=== PATIENT | female | born 1975 | race Hispanic/Latino ===

== ENCOUNTER 2017-07-22 15:41 | Outpatient (CLI) | payer OTHER | END 2017-07-22 15:42 | disposition home or self-care (01) | LOC: BICMAMMO 15:41 | PROVIDERS: ATTEND Family Medicine | DX: Z12.31 Encounter for screening mammogram for malignant neoplasm of breast (principal); R92.1 Mammographic calcification found on diagnostic imaging of breast; Z80.3 Family history of malignant neoplasm of breast | CPT/HCPCS: 77063; 77067 ==

== ENCOUNTER 2018-07-26 15:56 | Outpatient (CLI) | payer OTHER ==
--- NOTE | 2018-07-26 16:47 | MMO ---
Bilateral MAMMO Bilat Screen [facility]. CLINICAL HISTORY: Patient is 43 years old and is seen for screening. The patient has the following family history of breast cancer: paternal aunt. The patient has no personal history of cancer. VIEWS: The views performed were: bilateral craniocaudal with tomosynthesis; bilateral mediolateral oblique with tomosynthesis; and bilateral exaggerated craniocaudal with tomosynthesis. FILMS COMPARED: The present examination has been compared to prior imaging studies performed at [facility] on 06/17/2015, 06/21/2016 and 07/22/2017. MAMMOGRAM FINDINGS: There are scattered fibroglandular densities. There are no suspicious masses, suspicious calcifications, or new areas of architectural distortion. IMPRESSION: THERE IS NO MAMMOGRAPHIC EVIDENCE OF MALIGNANCY. A ROUTINE FOLLOW-UP MAMMOGRAM IN 1 YEAR IS RECOMMENDED. THE RESULTS OF THIS EXAM WERE SENT TO THE PATIENT. ACR BI-RADS Category 1 - Negative MAMMOGRAPHY NOTE: 1. A negative mammogram report should not delay a biopsy if a dominant of clinically suspicious mass is present. 2. Approximately 10% to 15% of breast cancers are not detected by mammography. 3. Adenosis and dense breasts may obscure an underlying neoplasm.
== END 2018-07-26 15:57 | disposition home or self-care (01) ==
LOC: BICMAMMO 15:56
PROVIDERS: ATTEND Family Medicine
DX: Z12.31 Encounter for screening mammogram for malignant neoplasm of breast (principal); Z80.3 Family history of malignant neoplasm of breast
CPT/HCPCS: 77063; 77067

== ENCOUNTER 2018-10-06 09:22 | Outpatient (CLI) | payer BC, SELFPAY ==
--- NOTE | 2018-10-06 10:20 | ULT ---
Exam: Hepatic ultrasound with vascular duplex including color and spectral Doppler imaging: HISTORY: Microcytic anemia, epigastric pain The liver is minimally enlarged with very minimally coarse echogenicity, measuring 19.8 cm in length. No focal liver mass. Common bile duct 0.5 cm. Gallbladder is distended and dilated filled with sludge and stones with borderline thickened gallblad ulysses wall. Hepatic venous and portal venous flow is antegrade. IMPRESSION: Antegrade hepatic and portal venous flow. Mildly dilated and distended gallbladder with very extensiv e sludge and stones with minimal gallbladder wall thickening without ductal dilatation. Mild hepatomegaly.
== END 2018-10-06 09:23 | disposition home or self-care (01) ==
LOC: BICULT 09:22
PROVIDERS: ATTEND Internal Medicine Gastroenterology
DX: K21.9 Gastro-esophageal reflux disease without esophagitis (principal); D50.9 Iron deficiency anemia, unspecified; K59.00 Constipation, unspecified; R10.13 Epigastric pain; K82.8 Other specified diseases of gallbladder; R16.0 Hepatomegaly, not elsewhere classified; K80.20 Calculus of gallbladder without cholecystitis without obstruction
CPT/HCPCS: 76705

== ENCOUNTER → 2018-12-12 | Day surgery (SDC) | payer BC ==
[2018-12-11 17:02] VITALS: BMI 44.0
[~2018-12-12] MED LIST: Bupivacaine/Epinephrine 0.25% 30 ML VIAL ONE; Dexamethasone 20 MG/5 ML VIAL ONE; Fentanyl 100 MCG/2 ML VIAL ONE; Glycopyrrolate 0.2 MG/ML 5 ML SYRINGE ONE; HYDROcodone/Acetaminophen 5/325 mg Tablet ONE; HYDROmorphone 0.5 MG/0.5 ML SYRINGE ONE; Ketorolac Tromethamine 30 MG/ML VIAL ONE; Lidocaine 1% PF 5 ML VIAL ONE; Lidocaine 2% Jelly 5 ML TUBE ONE; Midazolam HCl 2 mg/2 ml Vial ONE; Ondansetron PF 4 MG/2 ML Vial ONE; PROPOFOL 200 MG/20 ML VIAL ONE; Rocuronium Bromide 10 MG/ML (10ML VIAL) ONE
[2018-12-12 06:51] LABS: #Basophils 0.1 thou/uL (0.0-0.2); #Eosinphils 0.1 thou/uL (0.0-0.7); #Lymphocytes 1.2 thou/uL (1.20-3.40); #Monocytes 0.5 thou/uL (0.11-0.59); #Neutrophils 3.3 thou/uL (1.40-6.50); %Basophils 1.3 % (0.0-1.0); %Eosinophils 1.5 % (0.0-10.0); %Monocytes 8.8 % (0.0-10.0); %Neutrophils 64.5 % (42.0-75.0); Hemoglobin 8.3 g/dL (12.0-16.0); Mean Corpuscular HGB CONC 31.8 g/dL (32.0-36.0); Mean Corpuscular Hemoglobin 21.1 pg (27.0-31.0); Mean Corpuscular Volume 66.2 fL (78.0-98.0); Mean Platelet Volume 10.3 fL (7.4-10.4); Platelet Count 230 thou/uL (130-400); RBC Distribution Width 19.3 % (11.5-14.5); Red Blood Cell (RBC) Count 3.94 mill/uL (4.20-5.40); White Blood Cell (WBC) Count 5.1 thou/uL (4.8-10.8)
[2018-12-12 06:52] LABS: BHCG - Serum Negative (NEGATIVE); Pregs Control Background? CLEAR/WHITE (CLR/WHITE); Pregs Control Bar Appear? YES (CONTROL BAR)
[2018-12-12 07:09] LABS: ALT (SGPT) 9 U/L (8-55); AST (SGOT) 13 U/L (5-34); Alkaline Phosphatase 72 U/L (40-150); Anion Gap 11 mmol/L (10-20); BUN (Urea Nitrogen) 13 mg/dL (7.0-18.7); Bilirubin, Total 0.4 mg/dL (0.2-1.2); Calc. Creatinine Clearance 148 mL/min (70-130); Calcium 8.6 mg/dL (7.8-10.44); Carbon Dioxide 23 mmol/L (22-29); Chloride 106 mmol/L (98-107); Estimated GFR-MDRD 78; Globulin 2.7 g/dL (2.4-3.5); Glucose 94 mg/dL (70-105); Potassium 3.6 mmol/L (3.5-5.1); Protein, Total 6.7 g/dL (6.0-8.3); Sodium 136 mmol/L (136-145)
[2018-12-12 07:30] LABS: Hypochromia SLIGHT = 6-15 cells (100X) (0-5/hpf); MDiff Complete? YES; Microcytosis MODERATE=15-30 cells (100X) (0-5/hpf); Ovalocytes SLIGHT = 2-5 cells (100X) (0-1/hpf); Platelet Morphology Comment Appears Adequate; Polychromasia SLIGHT = 2-3 cells (100X) (0-2/hpf)
--- NOTE | 2018-12-12 17:32 | OP ---
DATE OF PROCEDURE: 12/12/2018 PREOPERATIVE DIAGNOSIS: Symptomatic cholelithiasis. POSTOPERATIVE DIAGNOSES: Symptomatic cholelithiasis with a markedly enlarged uterus. PROCEDURE PERFORMED: Laparoscopic cholecystectomy (using 5 ports). ANESTHESIA: General endotracheal. INDICATIONS FOR PROCEDURE: The patient is a 43-year-old female. She presented with symptoms referable to gallbladder. Gallbladder ultrasound reveals a gallbladder full of gallbladder sludge and stones, and she was taken to the operating room at this time for laparoscopic cholecystectomy. DESCRIPTION OF PROCEDURE: Informed consent was obtained. The patient was taken to the operating room, where general endotracheal anesthesia was obtained with the patient in the supine position. Abdomen was prepped with ChloraPrep and draped in sterile fashion. I was able to palpate a mass in her lower abdomen and extended this several centimeters above her umbilicus. I therefore obtained access in the right upper quadrant. A 5 mm incision was created and a Veress needle was passed into the abdominal cavity. Pneumoperitoneum was established with carbon dioxide to pressure of 15 mmHg. A 5 mm trocar port was established through the same incision. Laparoscopic camera was passed through this port. Examination revealed that there was a massively enlarged uterus extending up to at least 4 or 5 cm above the umbilicus. Under direct vision, I placed two additional 5 mm right upper quadrant ports. I placed an 11 mm supraumbilical port at least 5 cm above the umbilicus. Because of her obesity and her uterus, I could not visualize the apex of the gallbladder. I therefore placed a 5th port in the left mid abdomen and through this, placed a triangle snake retractor, which I used to retract the duodenum and fatty tissue, which gave exposure to the apex of the gallbladder. The gallbladder was retracted in cephalad direction. The infundibulum was grasped and retracted laterally and inferiorly. Careful dissection was carried out to identify the cystic duct and cystic artery. These were each dissected circumferentially and divided between clips leaving 2 on the side to remain within the abdomen. The gallbladder was then dissected at the gallbladder fossa using electrocautery. During the course of dissection, a rent occurred in the fundus of the gallbladder. From this, a copious amount of thick viscous sludge was aspirated. There were numerous gallstones present as well, but none spilled. The gallbladder was completely dissected from the liver and removed through the supraumbilical port site. The gallstones had to be extracted percutaneously to allow gallbladder removal. The fascia was closed with 0 Vicryl suture using a GraNee needle. The right upper quadrant was thoroughly irrigated and all irrigant was aspirated. The gallbladder fossa was without bleeding. The clips were inspected and found to be intact. All ports and instruments were removed under direct vision. Pneumoperitoneum was carefully evacuated. A 0.25% Marcaine with epinephrine was infiltrated at each port site. Skin edges were approximated with 4-0 Monocryl subcuticular suture. Dermabond was placed externally. There were no complications. The patient tolerated the procedure well and was taken to recovery room in stable condition. Job ID: [id number]
== END ==
LOC: SDC 05:49
PROVIDERS: ATTEND Specialist
PROC: 0FT44ZZ Resection of Gallbladder, Percutaneous Endoscopic Approach (ICD-10-PCS; principal; 2018-12-12)
DX: K80.10 Calculus of gallbladder with chronic cholecystitis without obstruction (principal); E66.9 Obesity, unspecified; Z68.41 Body mass index [BMI] 40.0-44.9, adult; Z87.891 Personal history of nicotine dependence
CPT/HCPCS: 36415; 80053; 84703; 85025; 88304; J0131; J0690; J1100; J1170; J1885; J2001; J2250; J2405; J2704; J3010

== ENCOUNTER 2018-12-16 17:49 | Inpatient (IN) | payer BC ==
[~2018-12-16 17:49] MED LIST changes: -Bupivacaine/Epinephrine 0.25% 30 ML VIAL ONE; -Dexamethasone 20 MG/5 ML VIAL ONE; -Fentanyl 100 MCG/2 ML VIAL ONE; -Glycopyrrolate 0.2 MG/ML 5 ML SYRINGE ONE; -HYDROcodone/Acetaminophen 5/325 mg Tablet ONE; -HYDROmorphone 0.5 MG/0.5 ML SYRINGE ONE; +ISOVUE-370 76%-LOCM 1 ML ONE; -Ketorolac Tromethamine 30 MG/ML VIAL ONE; -Lidocaine 1% PF 5 ML VIAL ONE; -Lidocaine 2% Jelly 5 ML TUBE ONE; -Midazolam HCl 2 mg/2 ml Vial ONE; -Ondansetron PF 4 MG/2 ML Vial ONE; -PROPOFOL 200 MG/20 ML VIAL ONE; -Rocuronium Bromide 10 MG/ML (10ML VIAL) ONE
[2018-12-16] MEDS ORDERED: Morphine 4 MG/ML VIAL ONE ×3 (18:06→21:50)
[2018-12-16] MEDS ORDERED: Ondansetron PF 4 MG/2 ML Vial ONE (18:21)
[2018-12-16] MEDS ORDERED: Ketorolac Tromethamine 30 MG/ML VIAL ONE (18:21)
[2018-12-16 18:32] LABS: #Lymphocytes 0.5 thou/uL (1.20-3.40); #Monocytes 0.5 thou/uL (0.11-0.59); #Neutrophils 12.5 thou/uL (1.40-6.50); %Basophils 0.2 % (0.0-1.0); %Eosinophils 0.1 % (0.0-10.0); %Lymphocytes 3.4 % (21.0-51.0); %Monocytes 3.6 % (0.0-10.0); %Neutrophils 92.7 % (42.0-75.0); Hemoglobin 9.3 g/dL (12.0-16.0); Mean Corpuscular HGB CONC 31.1 g/dL (32.0-36.0); Mean Corpuscular Hemoglobin 20.7 pg (27.0-31.0); Mean Corpuscular Volume 66.6 fL (78.0-98.0); Mean Platelet Volume 10.4 fL (7.4-10.4); Platelet Count 273 thou/uL (130-400); RBC Distribution Width 19.3 % (11.5-14.5); Red Blood Cell (RBC) Count 4.48 mill/uL (4.20-5.40); White Blood Cell (WBC) Count 13.5 thou/uL (4.8-10.8)
--- NOTE | 2018-12-16 18:43 | RAD ---
PORTABLE CHEST: 12/16/18 HISTORY: Diffuse pain. Recent gallbladder surgery. The film was shot in a lordotic fashion. Heart size is borderline considering the technique. Mediasti nal structures are unremarkable. There is subsegmental atelectatic changes in the bases. IMPRESSION: 1. Subsegmental atelectasis in both lung bases. 2. Borderline heart size. POS: [facility] [place]
[2018-12-16 18:52] LABS: ALT (SGPT) 18 U/L (8-55); AST (SGOT) 16 U/L (5-34); Albumin 4.2 g/dL (3.5-5.0); Alkaline Phosphatase 81 U/L (40-150); Anion Gap 12 mmol/L (10-20); BUN (Urea Nitrogen) 9 mg/dL (7.0-18.7); Bilirubin, Direct 0.2 mg/dL (0.1-0.3); Bilirubin, Total 0.4 mg/dL (0.2-1.2); Calc. Creatinine Clearance 0 mL/min (70-130); Carbon Dioxide 21 mmol/L (22-29); Chloride 106 mmol/L (98-107); Estimated GFR-MDRD 88; Glucose 130 mg/dL (70-105); Lipase 14 U/L (8-78); Potassium 4.2 mmol/L (3.5-5.1); Protein, Total 7.2 g/dL (6.0-8.3); Sodium 135 mmol/L (136-145)
--- NOTE | 2018-12-16 19:30 | CT ---
CT OF ABDOMEN AND PELVIS PERFORMED WITH INTRAVENOUS CONTRAST ENHANCEMENT: 12/16/18 HISTORY: Pain localized to right side of abdomen, right lower quadrant, but radiates across the abdomen. Had a cholecystectomy done Tuesday. There are subsegmental atelectatic changes in both bases, more prominent on the right. The liver show s no focal abnormalities. The spleen has a very lobulated contour and there are what appear to be acc essory splenules present. The pancreas region is unremarkable. Gallbladder has been removed. There i s minimal fat stranding in the gallbladder fossa without evidence of any fluid collection. There is f luid along the margin of the liver and a small amount of fluid tracking in the right pericolic gutter . Right and left adrenal glands and right and left kidneys are normal in size. Hypodensity involving th e upper pole of the right kidney is most likely a cyst. CT OF PELVIS PERFORMED WITH INTRAVENOUS CONTRAST ENHANCEMENT: There is a markedly enlarged fibromatous appearing uterus measuring in the 20 cm range. Multiple larg e fibroids noted. The appendix is difficult to identify but I see no signs of any abnormality in the appendix region. There is no evidence of any significant free fluid within the pelvis. IMPRESSION: 1. Bibasilar atelectasis, greater in the right base. 2. Fluid along the anterior aspect of the right lobe of the liver and some fluid and some minima l fat stranding tracking along the right pericolic gutter and right colon region as well as minimal f at stranding in the gallbladder fossa. These changes are all probably postoperative. The fluid presen t adjacent to the liver could possibly indicate a small subcapsular hematoma. There is air within th e subcutaneous tissue along the right upper abdomen related to the recent surgery. 3. Markedly enlarged fibromatous appearing uterus. POS: [facility]
[2018-12-16 20:11] LABS: Bilirubin Negative (Negative); Blood, Urine Negative (Negative); Clarity Clear (Clear); Glucose, Urine (Dipstick) Normal (Negative); Leukocyte Negative Leu/uL (Negative); Nitrite Negative (Negative); Protein, Urine (Dipstick) Negative (Neg-Trace); Urobilinogen Normal mg/dL (Less than 2)
[2018-12-16] MEDS ORDERED: Acetaminophen 325 MG TAB PO PRN (22:30)
[2018-12-16] MEDS ORDERED: HYDROcodone/Acetaminophen 5/325 mg Tablet PO PRN (22:30)
[2018-12-16] MEDS ORDERED: Ondansetron PF 4 MG/2 ML Vial IVP PRN (22:30)
[2018-12-16] MEDS ORDERED: Ondansetron ODT 4 MG TAB SL PRN (22:30)
[2018-12-16] MEDS: Dextrose 5 %-0.45 % NaCl 1,000 ML IV SCH (23:01)
[2018-12-16] MEDS: HYDROcodone/Acetaminophen 5/325 mg Tablet PO PRN (23:01)
[2018-12-16 23:15] VITALS: BMI 43.4
[2018-12-17] MEDS: Morphine 2 MG/ML SYRINGE SLOW IVP PRN ×2 (00:11→02:18)
[2018-12-17 02:39] LABS: Hemoglobin 9.8 g/dL (12.0-16.0); Mean Corpuscular HGB CONC 31.7 g/dL (32.0-36.0); Mean Corpuscular Hemoglobin 21.4 pg (27.0-31.0); Mean Corpuscular Volume 67.5 fL (78.0-98.0); Mean Platelet Volume 10.3 fL (7.4-10.4); Platelet Count 321 thou/uL (130-400); RBC Distribution Width 19.6 % (11.5-14.5); Red Blood Cell (RBC) Count 4.56 mill/uL (4.20-5.40); White Blood Cell (WBC) Count 17.4 thou/uL (4.8-10.8)
[2018-12-17 02:59] LABS: #Lymphocytes 0.8 thou/uL (1.20-3.40); #Neutrophils 15.6 thou/uL (1.40-6.50); %Basophils 0.2 % (0.0-1.0); %Lymphocytes 4.8 % (21.0-51.0); %Monocytes 5.5 % (0.0-10.0); %Neutrophils 89.3 % (42.0-75.0); Anisocytosis SLIGHT = 6-15 cells (100X) (0-5/hpf); Elliptocytes SLIGHT = 2-5 cells (100X) (0-1/hpf); Hypochromia SLIGHT = 6-15 cells (100X) (0-5/hpf); MDiff Complete? YES; Microcytosis SLIGHT = 6-15 cells (100X) (0-5/hpf)
[2018-12-17] MEDS: Dextrose 5 %-0.45 % NaCl 1,000 ML IV SCH (05:15)
[2018-12-17] MEDS: HYDROcodone/Acetaminophen 5/325 mg Tablet PO PRN ×3 (08:08→20:56)
[2018-12-17 10:28] LABS: #Lymphocytes 0.6 thou/uL (1.20-3.40); #Monocytes 1.1 thou/uL (0.11-0.59); #Neutrophils 11.9 thou/uL (1.40-6.50); %Basophils 0.2 % (0.0-1.0); %Eosinophils 0.1 % (0.0-10.0); %Lymphocytes 4.5 % (21.0-51.0); %Neutrophils 87.2 % (42.0-75.0); Hemoglobin 9.2 g/dL (12.0-16.0); Mean Corpuscular HGB CONC 31.6 g/dL (32.0-36.0); Mean Corpuscular Hemoglobin 21.2 pg (27.0-31.0); Mean Corpuscular Volume 67.2 fL (78.0-98.0); Mean Platelet Volume 10.8 fL (7.4-10.4); Platelet Count 264 thou/uL (130-400); RBC Distribution Width 19.2 % (11.5-14.5); Red Blood Cell (RBC) Count 4.34 mill/uL (4.20-5.40); White Blood Cell (WBC) Count 13.6 thou/uL (4.8-10.8)
[2018-12-17] MEDS ORDERED: Morphine 2 MG/ML SYRINGE SLOW IVP PRN (13:00)
[2018-12-17] MEDS ORDERED: HYDROcodone/Acetaminophen 5/325 mg Tablet PO PRN (13:00)
--- NOTE | 2018-12-17 14:49 | HP ---
CHIEF COMPLAINT: Increased abdominal pain, pain with taking deep breath. HISTORY OF PRESENT ILLNESS: This is a 43-year-old morbidly obese female, who underwent a scheduled laparoscopic cholecystectomy on the 10th, five days ago. She was found to have an enormous uterine fibroid. They had to add additional incisions. She was discharged home the same day. She reports that her pain has been getting worse since surgery and making it difficult to take a deep breath. She has had some nausea. No vomiting. No fever. She says she had a bowel movement yesterday. PAST MEDICAL HISTORY: Significant for morbid obesity, uterine fibroid. PAST SURGICAL HISTORY: Laparoscopic cholecystectomy, colonoscopy. MEDICATIONS: Tramadol. ALLERGIES: NO KNOWN DRUG ALLERGIES. SOCIAL HISTORY: She is single. She is a director at [employer]. No tobacco. Social alcohol. FAMILY HISTORY: Lung cancer. PHYSICAL EXAMINATION: VITAL SIGNS: Temperature 98.8, pulse 107, blood pressure 124/78, and O2 saturation is 94% on 2 L. GENERAL: Morbidly obese female, awake, alert. She is on oxygen. LUNGS: Clear. HEART: Regular rate and rhythm. ABDOMEN: Obese. The incisions are clean without erythema. She is tender along the right lateral abdomen. LABORATORY DATA: White count is 13.6, H and H are stable at 9.2 and 29, and platelet count 264. Electrolytes show an elevated glucose at 130, otherwise fine. IMAGING DATA: She had a CT scan showing atelectasis and some fluid along the liver edge and right gutter. Initially, the emergency room physician thought this was a subcapsular hematoma, but that is not true by radiology reading. She has a very large uterine fibroid. ASSESSMENT: Postoperative fluid collection. There was some spillage of gallbladder contents intraoperatively. This may be getting infected. PLAN: To go ahead and treated with some Lovenox, pain control, antibiotics, ambulation, clear liquids, but we will continue IV fluids for now. Job ID: [id number]
[2018-12-17] MEDS: Piperacillin/Tazobactam 3.375 GM in Sodium Chloride 0.9% 100 ML IVPB SCH (17:10)
[2018-12-17] MEDS: Morphine 4 MG/ML VIAL SLOW IVP PRN (18:22)
[2018-12-17] MEDS: Enoxaparin Sodium 40 MG/0.4 ML SYRINGE SC SCH (20:51)
[2018-12-18] MEDS: Piperacillin/Tazobactam 3.375 GM in Sodium Chloride 0.9% 100 ML IVPB SCH ×4 (00:03→18:03)
[2018-12-18] MEDS: Morphine 4 MG/ML VIAL SLOW IVP PRN ×3 (00:29→11:00)
[2018-12-18] MEDS: HYDROcodone/Acetaminophen 5/325 mg Tablet PO PRN ×2 (08:05→15:28)
[2018-12-18] MEDS ORDERED: Ondansetron PF 4 MG/2 ML Vial IVP PRN (12:53)
--- NOTE | 2018-12-18 13:15 | RAD ---
XR Chest 1 View Portable HISTORY: Sepsis COMPARISON: 12/16/2018 FINDINGS: No significant interval changes are seen. IMPRESSION: Stable exam.
[2018-12-18] MEDS ORDERED: ISOVUE-370 76%-LOCM 1 ML ONE (13:16)
[2018-12-18 13:30] LABS: ALT (SGPT) 15 U/L (8-55); AST (SGOT) 12 U/L (5-34); Albumin 3.9 g/dL (3.5-5.0); Alkaline Phosphatase 114 U/L (40-150); Anion Gap 14 mmol/L (10-20); BUN (Urea Nitrogen) 11 mg/dL (7.0-18.7); Bilirubin, Total 1.3 mg/dL (0.2-1.2); Calc. Creatinine Clearance 177 mL/min (70-130); Calcium 9.2 mg/dL (7.8-10.44); Carbon Dioxide 19 mmol/L (22-29); Chloride 106 mmol/L (98-107); Estimated GFR-MDRD Greater than 90; Globulin 3.4 g/dL (2.4-3.5); Glucose 119 mg/dL (70-105); Potassium 3.8 mmol/L (3.5-5.1); Protein, Total 7.3 g/dL (6.0-8.3); Sodium 135 mmol/L (136-145)
[2018-12-18] MEDS ORDERED: Sodium Chloride 0.9% 1,000 ML IV SCH (13:30)
[2018-12-18] MEDS ORDERED: Morphine 2 MG/ML SYRINGE SLOW IVP PRN ×2 (13:55→16:36)
[2018-12-18] MEDS ORDERED: Morphine 4 MG/ML VIAL SLOW IVP PRN (13:55)
[2018-12-18 14:39] LABS: #Lymphocytes 0.7 thou/uL (1.20-3.40); #Monocytes 0.8 thou/uL (0.11-0.59); #Neutrophils 9.4 thou/uL (1.40-6.50); %Basophils 0.3 % (0.0-1.0); %Eosinophils 0.2 % (0.0-10.0); %Lymphocytes 6.3 % (21.0-51.0); %Monocytes 7.5 % (0.0-10.0); %Neutrophils 85.7 % (42.0-75.0); Hemoglobin 9.6 g/dL (12.0-16.0); Mean Corpuscular HGB CONC 30.8 g/dL (32.0-36.0); Mean Corpuscular Hemoglobin 20.9 pg (27.0-31.0); Mean Platelet Volume 11.5 fL (7.4-10.4); Platelet Count 301 thou/uL (130-400); RBC Distribution Width 19.7 % (11.5-14.5); Red Blood Cell (RBC) Count 4.56 mill/uL (4.20-5.40)
--- NOTE | 2018-12-18 16:25 | CT ---
CT ANGIOGRAM THORAX WITH IV CONTRAST AND 3-D RECONSTRUCTIONS CLINICAL INDICATION: Shortness of breath. COMPARISON: None FINDINGS: Pulmonary arteries: There is suboptimal evaluation of the subsegmental pulmonary arteries, but no kwaku ling defects are seen in the central or segmental pulmonary to suggest a pulmonary embolus. Aorta: The aorta is normal in caliber without evidence of an aortic dissection. The heart is enlarged . Lungs: A small right pleural effusion with tiny left pleural effusion are noted. There is consolidati on at the right lung base which could be related to atelectasis, but pneumonia is a possibility. Atelectasis is present at the left lung base. This exam is obtained in expiratory phase of imaging. Mediastinum: There is no evidence of lymphadenopathy. Thyroid gland: Normal CT appearance. Osseous structures: No acute process. Chest wall: No abnormality visualized. Upper abdomen: Small amount of intraperitoneal free fluid is visualized. Postcholecystectomy changes are noted. There are multiple splenules within the left upper quadrant with lobulated margin of the spleen. IMPRESSION: 1. Limited evaluation of the subsegmental pulmonary arteries, but there is otherwise no evidence of a pulmonary embolus involving the central or segmental pulmonary arteries. 2. Cardiomegaly. 3. Consolidation right lung base which could be related to passive atelectasis, but pneumonia is a po ssibility. Follow-up to resolution is recommended. 4. Small right and tiny left pleural effusions. 5. Small amount of intraperitoneal free fluid adjacent to the liver. Postcholecystectomy changes are seen.
[2018-12-18] MEDS ORDERED: HYDROcodone/Acetaminophen 5/325 mg Tablet PO PRN (16:38)
--- NOTE | 2018-12-18 16:38 | CT ---
CT ABDOMEN AND PELVIS WITH IV CONTRAST 12/18/2018 CLINICAL INFORMATION: Continued abdominal pain and shortness of breath after cholecystectomy. COMPARISON: 12/16/2018 Technique: Multiple contiguous axial CT images are obtained through the abdomen and pelvis with IV contrast. Cor onal reformatted images are provided. FINDINGS: Lower Chest: Small right pleural effusion is present with tiny left pleural effusion. There is some c onsolidation are seen in each lung base greater on the right. This may related to bibasilar atelectasis, but pneumonia at the right lung base cannot be excluded. Vessels: Minimal vascular calcifications are seen in the abdominal aorta. Abdomen: Portal vein:Patent Gallbladder: Surgically absent. No fluid collection is seen in the gallbladder fossa. Minimal inflamm atory changes are seen likely postsurgical in origin. Liver: within normal limits. Spleen: Lobulated contour with multiple splenules. This is stable from prior exam. Pancreas: within normal limits. Adrenals: within normal limits. Kidneys: Difficult to characterize hypodense lesions are again seen in each kidney. Bowel: The stomach is distended with contrast. Loops of proximal small bowel are at the upper limits of normal in size may related to mild ileus. A developing small bowel obstruction cannot be entirely excluded, there is no transition point visualized. Appendix: The appendix is visualized and normal in caliber. Peritoneum: Small amount of free fluid is seen in the abdomen predominantly adjacent to the liver and in the pelvis as well as central mesentery. Mesentery and Retroperitoneum: No enlarged mesenteric or retroperitoneal lymph nodes. Abdominal Wall: Subcutaneous emphysema seen along the right anterolateral abdominal wall likely relat ed to recent surgery. Minimal subcutaneous edema is present. Pelvis: Reproductive Organs: The uterus is marked enlarged and lobulated with scattered calcifications. Findi ngs are again likely due multiple uterine fibroids. Pelvis within normal limits. Bladder: Mostly decompressed. Bones: No suspicious lytic or sclerotic osseous lesions are identified. IMPRESSION: 1. Evidence of postcholecystectomy changes without evidence of a fluid collection seen to suggest an abscess. 2. Markedly enlarged fibroid uterus. 3. Small amount of intraperitoneal free fluid mildly increased from prior exam. 4. Consolidation right lung base increased from prior exam which could be related to atelectasis, but pneumonia cannot be entirely excluded. 5. Small right and tiny left pleural effusions. 6. Loops of small bowel in the left upper quadrant which are at the upper limits of normal in size, a nd this may related to mild ileus. Developing partial small bowel obstruction cannot be entirely excluded. No transition point is evident. 7. Colonic diverticulosis. 8. Additional findings as described above.
[2018-12-18] MEDS ORDERED: Polyethylene Glycol 3350 17 GM Packet PO SCH (16:45)
[2018-12-18] MEDS ORDERED: Fleet Enema 133 ML BOT PR SCH (16:45)
[2018-12-18] MEDS: Acetaminophen 1,000 MG in Premix Bag 1 BAG IVPB SCH (19:02)
[2018-12-18] MEDS: Potassium Chloride 20 MEQ in Lactated Ringer's 1,000 ML IV SCH (19:02)
[2018-12-18] MEDS: Ketorolac Tromethamine 30 MG/ML VIAL IVP SCH (19:02)
[2018-12-18] MEDS: Enoxaparin Sodium 40 MG/0.4 ML SYRINGE SC SCH (21:17)
--- NOTE | 2018-12-18 21:24 | PRG ---
DATE OF SERVICE: 12/18/2018 SUBJECTIVE: Ms. Renteria was hospitalized over the weekend. She is status post laparoscopic cholecystectomy on December 12. Her surgery was performed without incident, although it was made extremely difficult by her huge uterus and her morbid obesity. Her complaint when she returned was abdominal pain and shortness of breath. She was admitted to the hospital and given intravenous antibiotics. A CT scan revealed a fluid collection outside the liver. It was difficult to tell if this was perihepatic fluid or a subcapsular hematoma. She has been on Zosyn since she was admitted and has also been receiving Lovenox. Since admission, she has had one elevated temperature of 100, but she has been afebrile all day today. She has been tachycardic since her arrival. She has been between 107 and 120. Her blood pressure has been stable at about 120/70. It was noted that she was tachypneic and her nurse called me to evaluate her this morning because of this. Laboratory studies were obtained. This does reveal leukocytosis with a white blood cell count of 11.0, but this is trending downward. Her white blood cell count was 13.6 yesterday. She still has a left shift. Her hemoglobin is stable at 9.6. She was anemic prior to her surgery. Her chemistry profile reveals some minor electrolyte abnormalities. Her bilirubin level has gone from 0.4 two days ago to 1.3, but is likely of no significant concern. She tells me that she still has difficulty coughing or taking a deep breath, but this is because of her perceived abdominal pain. OBJECTIVE: VITAL SIGNS: As mentioned, she is afebrile with a heart rate of 106-120, blood pressure is 128/80. LUNGS: Appear to be clear to auscultation anteriorly, although she is taking shallow breaths. ABDOMEN: Obese, but the incisions are healing nicely. Bowel sounds are present and somewhat hypoactive. She appears to have tenderness bilaterally when I press on her abdomen. X-RAYS: I obtained a CT angio to make sure she did not have an abnormal presentation of a pulmonary embolus. This did not reveal evidence of pulmonary embolus. This does show consolidation of the right lung base for which it was felt that pneumonia was a possibility. The CT scan of her abdomen that was obtained today reveals some edematous change within the abdomen. There is no fluid collection within the gallbladder fossa. The fluid around the liver that was noted earlier appears to be stable and relatively small in volume. There was noted to be a small amount of peritoneal fluid and again, she has huge uterus. The small bowel is mildly dilated, but the contrast appears to be passing through it appropriately. ASSESSMENT: I am not certain if her problems are related to a possible intraabdominal problem. She does not appear to have any definite post cholecystectomy issues, although I am not certain of the intraperitoneal fluid. The consolidation at the base of her lung is potentially concerning for pneumonia, which could cause her same symptoms if she is hypoventilating producing atelectasis and pneumonia. PLAN: For now, I will try to decrease her narcotic use and increase her pulmonary toilet. She will be started on nebulizer treatments. She will be given Toradol and Ofirmev to help with her pain control to try and decrease her narcotic use. I will encourage her to ambulate several times a day and will consult the walking team. If she continues to have substantial abdominal pain, may need to consider a laparoscopy to make sure that the fluid in the abdomen is nothing of concern. It is encouraging that she is afebrile and that her white blood cell count is decreasing. I will continue to follow her closely at this time. Job ID: [id number]
[2018-12-19] MEDS: Piperacillin/Tazobactam 3.375 GM in Sodium Chloride 0.9% 100 ML IVPB SCH ×3 (00:17→12:10)
[2018-12-19] MEDS: Acetaminophen 1,000 MG in Premix Bag 1 BAG IVPB SCH ×3 (00:18→12:10)
[2018-12-19] MEDS: Ketorolac Tromethamine 30 MG/ML VIAL IVP SCH ×3 (00:19→12:10)
[2018-12-19 04:26] LABS: #Eosinphils 0.1 thou/uL (0.0-0.7); #Monocytes 0.7 thou/uL (0.11-0.59); #Neutrophils 5.7 thou/uL (1.40-6.50); %Basophils 0.3 % (0.0-1.0); %Eosinophils 1.3 % (0.0-10.0); %Lymphocytes 13.5 % (21.0-51.0); %Neutrophils 75.8 % (42.0-75.0); Hemoglobin 8.3 g/dL (12.0-16.0); Mean Corpuscular Hemoglobin 20.7 pg (27.0-31.0); Mean Corpuscular Volume 66.9 fL (78.0-98.0); Mean Platelet Volume 9.8 fL (7.4-10.4); Platelet Count 272 thou/uL (130-400); RBC Distribution Width 19.1 % (11.5-14.5); Red Blood Cell (RBC) Count 4.01 mill/uL (4.20-5.40); White Blood Cell (WBC) Count 7.5 thou/uL (4.8-10.8)
[2018-12-19 05:40] LABS: ALT (SGPT) 11 U/L (8-55); AST (SGOT) 12 U/L (5-34); Albumin 3.5 g/dL (3.5-5.0); Alkaline Phosphatase 115 U/L (40-150); Anion Gap 14 mmol/L (10-20); BUN (Urea Nitrogen) 14 mg/dL (7.0-18.7); Bilirubin, Total 1.5 mg/dL (0.2-1.2); Calc. Creatinine Clearance 180 mL/min (70-130); Calcium 8.9 mg/dL (7.8-10.44); Carbon Dioxide 21 mmol/L (22-29); Chloride 104 mmol/L (98-107); Estimated GFR-MDRD Greater than 90; Globulin 3.1 g/dL (2.4-3.5); Glucose 103 mg/dL (70-105); Potassium 3.5 mmol/L (3.5-5.1); Protein, Total 6.6 g/dL (6.0-8.3); Sodium 135 mmol/L (136-145)
--- NOTE | 2018-12-19 06:51 | PDOC.GSPN ---
Surgery Progress Note: Subj - Subjective Patient reports: had a bowel movement, feels better, tolerating liquids well, pain is less Narrative: Cynthia Renteria is a morbidly obese 43YO HF w/ sig. PMH of large uterine fibroid who originally presented to the hospital on 12/12 for an elective lap haylee. She returned to the hospital on 12/18 for complaints of worsening abdominal pain and difficulty taking deep breaths. Overnight, her vitals were stable and she was afebrile. She is currently managing pain w/ scheduled tramadol 30mg and acetaminophen 1000mg Q6 and her pain decreased from 10/10 yesterday to 7/10 today. She tolerated clear liquid diet well, had a bowel movement yesterday, and is ready to advance to regular diet. She has ambulated down the hallway a few times and was able to walk to the bathroom with some assistance yesterday. Surgery Progress Note: Obj - Vital signs Vital signs: Vital Signs - Most Recent Temp Pulse Resp BP Pulse Ox 97.9 F 83 18 126/81 97 12/19/18 03:21 12/19/18 03:21 12/19/18 03:21 12/19/18 03:21 12/19/18 03:21 - Physical Exam General: no distress, moderate pain, obese Cardiovascular: regular rate and rhythm, no murmur Respiratory: clear to auscultation, normal expansion, normal respiratory effort Abdomen: positive bowel sounds, tender (bilateral tenderness to palpation in a band like pattern across the middle abdomen) Integumentary: no abnormal pigmentation, no growths, no rash Psychiatric: memory intact, oriented to time, oriented to person, oriented to place, speech is normal Wound: healing well Surgery Progress Note: Results - Labs Result Diagrams: 12/19/18 04:02 12/19/18 04:02 Lab results: Laboratory Results - last 24 hr 12/19/18 12/19/18 04:02 04:02 WBC 7.5 RBC 4.01 L Hgb 8.3 L Hct 26.9 L MCV 66.9 L MCH 20.7 L MCHC 31.0 L RDW 19.1 H Plt Count 272 MPV 9.8 Neutrophils % 75.8 H Lymphocytes % 13.5 L Monocytes % 9.0 Eosinophils % 1.3 Basophils % 0.3 Neutrophils # 5.7 Lymphocytes # 1.0 L Monocytes # 0.7 H Eosinophils # 0.1 Basophils # 0.0 Sodium 135 L Potassium 3.5 Chloride 104 Carbon Dioxide 21 L Anion Gap 14 BUN 14 Creatinine 0.65 Estimated GFR (MDRD) Greater than 90 Glucose 103 Calcium 8.9 Total Bilirubin 1.5 H AST 12 ALT 11 Alkaline Phosphatase 115 Serum Total Protein 6.6 Albumin 3.5 Globulin 3.1 Albumin/Globulin Ratio 1.1 L Surgery Progress Note: A/P - Plan Plan: Patient has been improving well since returning to the hospital. Patient has decreasing pain despite weaning off of morphine and norco. Patient hasn't had much cough and has been using the inspiratory spirometer as instructed. Patient' s tachycardia and tachypnea both resolved and hasn't been using any O2 support overnight. Even though patient still has persisting abdominal pain, her WBC count returned to 7.5 today from 11H yesterday. Her glucose also decreased from 119H yesterday to 103 today. Her H&H have been relatively stable but both decreased yesterday from 9.6 to 8.3L and 31L to 26.9L respectively. Her bilirubin has been steadily trending upward from 1.3H yesterday to 1.5H today. Maintain patient on PRN pain med, finish abx tx regimen, and encourage ambulation and inspiratory spirometer usage. Advance patient to regular diet today and monitor vital signs for improvement. Reassess patient's abdominal fluid via imaging and lab as needed.
[2018-12-19] MEDS ORDERED: Polyethylene Glycol 3350 17 GM Packet PO SCH (09:00)
[2018-12-19] MEDS: Potassium Chloride 20 MEQ in Lactated Ringer's 1,000 ML IV SCH (14:01)
[2018-12-19 15:15] VITALS: BP 117/82; TEMP 98.8
[2018-12-19] MEDS ORDERED: HYDROcodone/Acetaminophen 5/325 mg Tablet PO PRN ×2 (18:00)
--- NOTE | 2018-12-23 13:21 | EKG ---
Test Reason : Blood Pressure : / mmHG Vent. Rate : 102 BPM Atrial Rate : 102 BPM P-R Int : 154 ms QRS Dur : 076 ms QT Int : 358 ms P-R-T Axes : 039 -08 003 degrees QTc Int : 466 ms Sinus tachycardia Possible Left atrial enlargement Left ventricular hypertrophy Abnormal ECG Confirmed by JOEY RUCKER ([id number]), scientific publications editor KAYLEE RIVAS ([id number]) on 12/23/2018 1:21:01 PM Referred By: Confirmed By:JOEY RUCKER
== END 2018-12-19 16:23 | disposition home or self-care (01) | DRG 919 ==
LOC: ERS 17:49 → SURG B 20:14 → OBSVTOIN 20:14 → SURG B 22:02
PROVIDERS: ADMIT Surgery; ATTEND Surgery
DX: I97.621 Postprocedural hematoma of a circulatory system organ or structure following other procedure (principal); J18.9 Pneumonia, unspecified organism; J98.11 Atelectasis; Z68.41 Body mass index [BMI] 40.0-44.9, adult; Y83.9 Surgical procedure, unspecified as the cause of abnormal reaction of the patient, or of later complication, without mention of misadventure at the time of the procedure; Y82.9 Unspecified medical devices associated with adverse incidents; Y92.9 Unspecified place or not applicable; E66.01 Morbid (severe) obesity due to excess calories; R00.0 Tachycardia, unspecified; R06.82 Tachypnea, not elsewhere classified; D25.9 Leiomyoma of uterus, unspecified
CPT/HCPCS: 36415; 36416; 71045; 71275; 74177; 80053; 81003; 82248; 83690; 85025; 93005; 94640; 96361; 96374; 96375; 96376; J0131; J1650; J1885; J2270; J2405; J2543; J3480; J3490; J7120; J7620; Q9966

== ENCOUNTER 2018-12-24 08:03 | Inpatient (IN) | payer BC ==
[2018-12-24] MEDS ORDERED: Ondansetron PF 4 MG/2 ML Vial ONE ×2 (08:34→16:09)
[2018-12-24] MEDS ORDERED: Morphine 4 MG/ML VIAL ONE (08:34)
[2018-12-24 08:48] LABS: #Lymphocytes 0.8 thou/uL (1.20-3.40); #Neutrophils 5.6 thou/uL (1.40-6.50); %Basophils 0.1 % (0.0-1.0); %Eosinophils 0.2 % (0.0-10.0); %Lymphocytes 10.8 % (21.0-51.0); %Monocytes 13.1 % (0.0-10.0); %Neutrophils 75.8 % (42.0-75.0); BHCG - Serum Negative (NEGATIVE); Hemoglobin 10.7 g/dL (12.0-16.0); Mean Corpuscular HGB CONC 31.6 g/dL (32.0-36.0); Mean Corpuscular Hemoglobin 20.6 pg (27.0-31.0); Mean Corpuscular Volume 65.2 fL (78.0-98.0); Mean Platelet Volume 8.8 fL (7.4-10.4); Platelet Count 608 thou/uL (130-400); Pregs Control Background? CLEAR/WHITE (CLR/WHITE); Pregs Control Bar Appear? YES (CONTROL BAR); RBC Distribution Width 19.1 % (11.5-14.5); Red Blood Cell (RBC) Count 5.19 mill/uL (4.20-5.40); White Blood Cell (WBC) Count 7.4 thou/uL (4.8-10.8)
[2018-12-24 09:04] LABS: ALT (SGPT) 18 U/L (8-55); AST (SGOT) 16 U/L (5-34); Albumin 3.6 g/dL (3.5-5.0); Alkaline Phosphatase 265 U/L (40-150); Anion Gap 15 mmol/L (10-20); BUN (Urea Nitrogen) 30 mg/dL (7.0-18.7); Bilirubin, Total 1.4 mg/dL (0.2-1.2); CK (CPK) 16 U/L (29-168); Calc. Creatinine Clearance 0 mL/min (70-130); Calcium 10.1 mg/dL (7.8-10.44); Carbon Dioxide 27 mmol/L (22-29); Chloride 93 mmol/L (98-107); Estimated GFR-MDRD 72; Globulin 3.8 g/dL (2.4-3.5); Glucose 160 mg/dL (70-105); Lipase 20 U/L (8-78); Protein, Total 7.4 g/dL (6.0-8.3); Sodium 131 mmol/L (136-145)
--- NOTE | 2018-12-24 09:16 | RAD ---
EXAM: Portable chest PROVIDED CLINICAL HISTORY: Nausea and vomiting COMPARISON: 12/18/2018 FINDINGS: The lungs are hypoinflated, limiting evaluation. Bibasilar pleural-parenchymal changes are again seen . Cardiac silhouette is unchanged in appearance. IMPRESSION: Hypoinflated exam.
--- NOTE | 2018-12-24 09:31 | CT ---
EXAM: CT Abdomen Pelvis W Con PROVIDED CLINICAL HISTORY: Abdominal pain COMPARISON: 12/18/2018, 12/16/2018 FINDINGS: Right basilar subsegmental atelectatic change and trace right pleural fluid persist. Diffuse fatty infiltration of the liver. The solid abdominal organs demonstrate a stable CT appearanc e. Changes of prior cholecystectomy are noted. There is stranding of the fat in the right upper quadrant . There is prominent interval increase in free intraperitoneal fluid, the Hounsfield units of which are greater than would be expected on the basis of simple fluid. Scattered ectatic loops of fluid-filled small bowel without evidence for bowel obstruction. Prominent ly enlarged and heterogeneous uterus with multiple fibroids again demonstrated. Osseous structures demonstrate no concerning lytic or blastic lesions. IMPRESSION: Conspicuously increased free intraperitoneal fluid. Findings may reflect bile leak. Blood products co uld also be considered.
[2018-12-24] MEDS ORDERED: Piperacillin/Tazobactam 4.5 GM VIAL ONE (10:17)
[2018-12-24 12:16] VITALS: BMI 43.4
[2018-12-24] MEDS ORDERED: Fentanyl 100 MCG/2 ML VIAL ONE ×3 (12:18→14:39)
[2018-12-24] MEDS ORDERED: Iothalamate Meglumine 60% 50 ML VIAL FS ONE (12:21)
[2018-12-24] MEDS ORDERED: Indomethacin 50 MG SUPP ONE (12:23)
[2018-12-24] MEDS ORDERED: Indomethacin 50 MG SUPP PR SCH (12:30)
--- NOTE | 2018-12-24 12:45 | CON ---
DATE OF CONSULTATION: 12/24/2018 CONSULTING PROVIDER: Yahir Guzman MD REASON FOR CONSULTATION: Increased midepigastric abdominal pain, bile leak. HISTORY OF PRESENT ILLNESS: The patient is a 43-year-old female with past medical history of morbid obesity and a large uterine fibroid, who underwent elective laparoscopic cholecystectomy on December 12, 2018. In the postoperative period, she was discharged to home and had been doing well up until 2 to 3 days after the procedure, and she experienced increased midepigastric abdominal pain that generalized to the entire abdomen. The pain was characterized as a sharp/burning-type sensation, was constant, again radiated to the generalized abdomen and reached a severity of 8/10. She ultimately came back to the [facility] ER approximately 5 days after her surgery for further evaluation and noted to have a small fluid collection in the gallbladder fossa on imaging. She was ultimately admitted to the hospital with control of her pain with scheduled tramadol and Tylenol and ultimately discharged back to home. However, upon going home, she again experienced worsening her pain, which prompted repeat evaluation in the hospital with discharged on December 19, 2018, again responding more to conservative management. However, shortly after discharge, she again began to experience continued pain that was worse with movement, coughing, eating, and lying flat, better with ambulation. She was given a prescription for levofloxacin as part of a seven-day regimen, but did not experience any significant relief associated with this particular medication. She also endorses increased abdominal bloating, shortness of breath, decreased appetite, and had experienced increased nausea with nonbloody emesis last night, which then prompted her to come back to the ER for further evaluation. In the ER, she was noted to have an elevated lactic acid, bilirubin, and alkaline phosphatase as well as imaging showing a prominent interval increase in the free intraperitoneal fluid reflecting a probable bile leak. She was subsequently admitted to the hospital for further evaluation with GI and General Surgery consultation. Currently, she denies any hematemesis, melena, hematochezia, dysphagia, odynophagia, or weight loss during the course of these repeated episodes of evaluation in the hospital. REVIEW OF SYSTEMS: A 10-category review of systems was obtained with all responses negative except for the pertinent positives as listed in HPI. PAST MEDICAL HISTORY: As per HPI. PAST SURGICAL HISTORY: Laparoscopic cholecystectomy and colonoscopy. FAMILY HISTORY: Denies any GI malignancies. SOCIAL HISTORY: Denies any tobacco or illicit drug use. Occasionally drinks alcohol. OUTPATIENT MEDICATIONS: 1. Tramadol. 2. Levofloxacin. ALLERGIES: NO KNOWN DRUG ALLERGIES. PHYSICAL EXAMINATION: VITAL SIGNS: Temperature 98.6, pulse 144, blood pressure 138/87, respiratory rate 22, and saturating 95% on room air. GENERAL: The patient is lying in bed, in mild distress, but she was alert and oriented x4. HEENT: Normocephalic and atraumatic. NECK: Supple. No JVD or scleral icterus noted. CARDIOVASCULAR: Tachycardic rate, but regular rhythm. No discernible murmurs, gallops, or rubs. RESPIRATORY: Clear to auscultation bilaterally with no discernible wheezes or rales, although somewhat increased respiratory rate as well. ABDOMEN: Normoactive bowel sounds. Tense to palpation. [id number] abdominal distention as well as significant tenderness to palpation in all abdominal quadrants to both very light and deep palpation. EXTREMITIES: No cyanosis, clubbing, or edema. LABORATORY DATA: CBC with a white blood cell count of 7.4, hemoglobin 10.7, hematocrit 33.8, and platelets 608. Chemistry with a sodium of 131, potassium 4, chloride 93, CO2 of 27, BUN 30, creatinine 0.85, glucose 160, AST 16, ALT 18, alkaline phosphatase 265, total bilirubin 1.4, lactic acid 2.7, albumin 3.6, and lipase 20. Serum test negative. IMAGING DATA: CT of the abdomen and pelvis was obtained on December 24, 2018, which showed right basilar subsegmental atelectatic change and trace right pleural fluid that is persisting, diffuse fatty infiltration of the liver was also seen, prior changes consistent with cholecystectomy were also seen with fat stranding in the right upper quadrant. However, there was a prominent interval increase in free intraperitoneal fluid. In addition to scattered ectatic loops of fluid-filled small bowel without evidence of obstruction, a prominently enlarged heterogeneous uterus with multiple fibroids were again seen as well. ASSESSMENT AND PLAN: The patient is a 43-year-old female with past medical history of morbid obesity, uterine fibroids and more recently undergoing laparoscopic cholecystectomy, now presenting with generalized abdominal pain, elevated LFTs, and a worsening fluid collection on CT consistent with a post cholecystectomy bile leak. Post cholecystectomy bile leak: The patient is presenting with acute onset of increased midepigastric abdominal pain that has been present since approximately 48 to 72 hours after her elective laparoscopic cholecystectomy performed of December 12, 2018. She had been evaluated in the ER on December 16, but which showed only a small amount of fluid surrounding the liver within the gallbladder fossa with no elevation in her LFTs at that time. However, subsequent visit to the ER and ultimately hospitalization on December 17 showed slight worsening of her total bilirubin, in addition to continued/persistent fluid collection around the liver and within the gallbladder fossa. Now presenting with again continued abdominal pain, elevated total bilirubin, elevated alkaline phosphatase, and with worsening of the fluid collection around the liver is strongly concerning for a bile duct leak. The likelihood of a hematoma generating these imaging findings is unlikely given uptrending of her H and H at this time. Differential diagnosis could include serositis, chylous ascites (much less likely), significant inflammatory change related to post cholecystectomy infection (less likely). Recommendations; 1. Would continue to trend the patient's LFTs daily for monitoring of her liver function during this time. 2. We would continue patient on n.p.o. status with plans for endoscopic retrograde cholangiopancreatography later on today for evaluation of bile duct leak. 3. Antibiotic regimen per primary team. 4. Pain control per primary team. 5. Further recommendations to follow endoscopic retrograde cholangiopancreatography. We will continue to follow. Please call with any questions. Job ID: [id number]
[2018-12-24] MEDS ORDERED: ISOVUE-370 76%-LOCM 1 ML ONE (12:51)
--- NOTE | 2018-12-24 13:35 | RAD ---
EXAM: XR ERCP PROVIDED CLINICAL HISTORY: Abdominal pain with nausea and vomiting postcholecystectomy. COMPARISON: None FINDINGS/IMPRESSION: 4 intraoperative fluoroscopic images of the right upper quadrant are submitted for interpretation. In itial image demonstrates guidewire in place within the common duct and surgical clips overlying the right upper quadrant. Subsequent imaging demonstrates opacification of the common duct. Faint opacifi cation of the common duct does not demonstrate dilatation. Portions of the common duct are obscured, but a definitive persist filling defect is not definitely visualized. Subsequent imaging de monstrates placement of an endostent. Correlation with intraoperative findings is recommended.
[2018-12-24] MEDS ORDERED: Ondansetron HCl/PF 4 MG/2 ML Vial IVP PRN (13:51)
[2018-12-24] MEDS ORDERED: HYDROmorphone 2 MG/ML VIAL SLOW IVP PRN (13:51)
[2018-12-24] MEDS ORDERED: Promethazine HCl 25 MG/ML VIAL IM PRN ×3 (13:51→14:46)
[2018-12-24] MEDS ORDERED: Promethazine HCl 25 MG/ML VIAL SLOW IVP PRN (13:51)
[2018-12-24] MEDS ORDERED: diphenhydrAMINE 50 MG/ML VIAL IM PRN (14:36)
[2018-12-24] MEDS ORDERED: diphenhydrAMINE 50 MG/ML VIAL IVP PRN (14:36)
[2018-12-24] MEDS ORDERED: Ketorolac Tromethamine 30 MG/ML VIAL IVP PRN (14:36)
[2018-12-24] MEDS ORDERED: diphenhydrAMINE 25 MG CAP PO PRN (14:36)
[2018-12-24] MEDS ORDERED: Zolpidem Tartrate 5 MG TAB PO PRN (14:36)
[2018-12-24] MEDS ORDERED: Naloxone HCl 0.4 mg/ml Vial IV PRN (14:36)
[2018-12-24] MEDS ORDERED: Communication Order-Pharmacy FS SCH (14:45)
[2018-12-24] MEDS ORDERED: Dextrose 5% in Water 1,000 ML IV PRN (14:46)
[2018-12-24] MEDS ORDERED: Ondansetron PF 4 MG/2 ML Vial IVP PRN (14:46)
[2018-12-24] MEDS ORDERED: Dextrose 50% Abboject 50 ML SYRINGE SLOW IVP PRN (14:46)
[2018-12-24] MEDS ORDERED: hydrALAZINE 20 MG/ML VIAL SLOW IVP PRN (14:46)
--- NOTE | 2018-12-24 15:08 | HP ---
CHIEF COMPLAINT: Bile leak. HISTORY OF PRESENT ILLNESS: The patient is a 43-year-old female, who underwent laparoscopic cholecystectomy back on 12/12/2018. She returned with some postoperative pain on 12/17, and was admitted for few days and improved and went home. Now, she returns with more severe upper abdominal pain associated with tachycardia. On CT scan, she has a lot of free fluid in her abdomen. PAST MEDICAL HISTORY: Includes morbid obesity, uterine fibroid, and cholecystitis. PAST SURGICAL HISTORY: Laparoscopic cholecystectomy. MEDICATIONS: Medicines taken daily: Tramadol. ALLERGIES: NO KNOWN DRUG ALLERGIES. SOCIAL HISTORY: Single. No tobacco or alcohol. REVIEW OF SYSTEMS: Ten-system review of systems is otherwise negative unless described above. PHYSICAL EXAMINATION: CHEST: Clear. HEART: Increased rate, regular rhythm without murmur. ABDOMEN: Soft, diffusely tender. Incisions are healing well. EXTREMITIES: No ischemia or edema to extremities. LABORATORY DATA: Her bilirubin was up at 1.4. Her lipase is 20. Her white blood cell count is 7, hemoglobin is 10, platelet count is 608. CT scan shows free fluid. ASSESSMENT: Bile leak status post laparoscopic cholecystectomy. PLAN: Dr. Titus to perform ERCP today. Continue supportive care. If not significantly improving tomorrow after ERCP and stent placement, she may need abdominal washout. Job ID: [id number]
[2018-12-24] MEDS: Sodium Chloride 0.9% 1,000 ML IV SCH ×2 (15:43→23:27)
[2018-12-24] MEDS ORDERED: Piperacillin/Tazobactam 3.375 GM in Sodium Chloride 0.9% 100 ML IVPB SCH (16:00)
[2018-12-24] MEDS ORDERED: Lidocaine 1% PF 5 ML VIAL ONE (16:09)
[2018-12-24] MEDS ORDERED: PROPOFOL 200 MG/20 ML VIAL ONE (16:09)
[2018-12-24] MEDS ORDERED: Dexamethasone 20 MG/5 ML VIAL ONE (16:09)
[2018-12-24] MEDS ORDERED: Succinylcholine Chloride 20 MG/ML 10 ml SYRINGE FS ONE (16:09)
--- NOTE | 2018-12-24 17:03 | OP ---
DATE OF PROCEDURE: 12/24/2018 PROCEDURES PERFORMED: Endoscopic retrograde cholangiopancreatography with sphincterotomy, occlusion cholangiogram with biliary balloon and stent placement. INDICATION FOR PROCEDURE: Probable bile duct leak. DESCRIPTION OF PROCEDURE: After the risks and benefits of the procedure were explained to the patient including risks of bleeding, infection, perforation, reactions to anesthesia, aspiration, post ERCP pancreatitis and/or pain, informed consent was obtained. The patient was then taken to the endoscopy suite, where general anesthesia was administered with endotracheal tube intubation. Once the patient was sedated and intubated, she was then maneuvered into the prone position in preparation for the ERCP. Once in adequate position, the standard colonoscope was introduced into the mouth with intubation of the esophagus, stomach, and the proximal small intestines with the findings listed below. Limited views were obtained of the esophagus, stomach, and proximal small intestines given the side-viewing aspect of the scope. The patient tolerated the procedure well with no immediate perioperative complications. Upon completion of the procedure, all equipment was removed from the patient and she was transferred to PACU in satisfactory condition. FINDINGS: EGD findings: Limited views were obtained of the esophagus, stomach, and the proximal small intestines; however, other views obtained. There was significant erosions seen in the distal esophagus that extended between folds, but was not circumferential in nature indicative of LA grade C reflux esophagitis. Otherwise, there was no associated ulcerations or active/recent bleeding associated with this finding. Normal-appearing views were seen both within the stomach and the proximal small intestines. ERCP findings: The ampulla was easily identified within the second portion of the duodenum and was cannulated doing of using a 5 mm Ultratome sphincterotome. Once the ampulla was successfully cannulated and a guidewire was placed into the intrahepatic biliary tree, a cholangiogram was then performed. Initially, the contrast dye did not show filling of the common bile duct, but rather it showed a large blush of contrast sitting outside of the small intestines next to the scope itself on fluoroscopy. Given this finding that the probability of a bile duct leak was high, a sphincterotomy was then performed in order to facilitate passage of the biliary stent. Once the sphincterotomy was performed, the sphincterotome was exchanged for a 9 to 12 mm biliary balloon using exchange technique over guidewire. Once the balloon was in adequate position, an occlusion cholangiogram was then performed with the balloon inflated in the common hepatic duct. Within the common hepatic duct, it showed good filling of the intrahepatic biliary tree with no evidence of bile duct leak in this region indicative of a duct leak of [place]. However, as the balloon was withdrawn into the common bile duct, a blush of contrast was seen outside of the common bile duct indicative of a probable cystic duct stump leak. The balloon was then withdrawn into the distal common bile duct with continued dye injected into the common bile duct, which showed that the common bile duct measured approximately 5 mm in diameter. Given the presence of a cystic duct stump leak. A 7 cm 11.5-[place] biliary stent was then successfully placed into the extrahepatic biliary tree with good drainage of bile noted at the end of the procedure. At which point, all equipment was removed from the patient and she was transferred to PACU for recovery. IMPRESSION: 1. Bile duct leak, most likely at the cystic duct stump as evidenced by the blush of contrast. 2. Successful placement of a 7 cm 11.5-[place] biliary stent. RECOMMENDATIONS: 1. Would continue to trend the patient's LFTs daily for evidence of redirection of the bile through the stent as opposed to the leak itself. 2. Pain control per primary team. 3. Continue to monitor patient for clinical improvement with repeat CT scan if not showing any clinical improvement or decompensation. 4. We will place the patient on broad-spectrum antibiotics given the bile leak today. 5. We will place the patient on a clear liquid diet and advance the diet as tolerated. 6. We will continue to follow. Please call with any questions. Job ID: [id number]
[2018-12-24] MEDS: Acetaminophen 1,000 MG in Premix Bag 1 BAG IVPB SCH ×2 (17:27→23:28)
[2018-12-24] MEDS: Ketorolac Tromethamine 30 MG/ML VIAL IVP SCH ×2 (17:28→23:28)
[2018-12-24] MEDS: Piperacillin/Tazobactam 3.375 GM in Sodium Chloride 0.9% 100 ML IVPB SCH ×2 (17:45→23:27)
[2018-12-24] MEDS: Ondansetron PF 4 MG/2 ML Vial IVP PRN ×2 (17:49→23:28)
[2018-12-25 05:26] LABS: ALT (SGPT) 15 U/L (8-55); AST (SGOT) 20 U/L (5-34); Albumin 3.2 g/dL (3.5-5.0); Alkaline Phosphatase 223 U/L (40-150); Anion Gap 17 mmol/L (10-20); BUN (Urea Nitrogen) 36 mg/dL (7.0-18.7); Bilirubin, Total 1.2 mg/dL (0.2-1.2); Calc. Creatinine Clearance 98 mL/min (70-130); Carbon Dioxide 21 mmol/L (22-29); Chloride 100 mmol/L (98-107); Estimated GFR-MDRD 49; Globulin 3.4 g/dL (2.4-3.5); Glucose 151 mg/dL (70-105); Protein, Total 6.6 g/dL (6.0-8.3); Sodium 134 mmol/L (136-145)
[2018-12-25 05:27] LABS: Band 12 % (5-11); Hemoglobin 9.9 g/dL (12.0-16.0); Hypochromia SLIGHT = 6-15 cells (100X) (0-5/hpf); Lymphocytes 7 % (21-51); MDiff Complete? YES; Mean Corpuscular HGB CONC 30.7 g/dL (32.0-36.0); Mean Corpuscular Hemoglobin 20.6 pg (27.0-31.0); Mean Corpuscular Volume 67.1 fL (78.0-98.0); Metamyelocyte 3 % (0-0); Microcytosis SLIGHT = 6-15 cells (100X) (0-5/hpf); Monocytes 7 % (0-10); Neutrophil 71 % (42-75); Platelet Count 603 thou/uL (130-400); Platelet Morphology Comment Appears Increased; RBC Distribution Width 19.3 % (11.5-14.5); White Blood Cell (WBC) Count 6.7 thou/uL (4.8-10.8)
[2018-12-25] MEDS: Piperacillin/Tazobactam 3.375 GM in Sodium Chloride 0.9% 100 ML IVPB SCH ×3 (05:52→17:34)
[2018-12-25] MEDS: Acetaminophen 1,000 MG in Premix Bag 1 BAG IVPB SCH ×3 (05:52→17:34)
[2018-12-25] MEDS: Ondansetron PF 4 MG/2 ML Vial IVP PRN (05:53)
[2018-12-25] MEDS: Ketorolac Tromethamine 30 MG/ML VIAL IVP SCH ×3 (05:53→17:34)
[2018-12-25] MEDS: Pantoprazole 40 MG VIAL IVP SCH (08:42)
[2018-12-25] MEDS ORDERED: Sodium Chloride 0.9% 1,000 ML IV SCH (10:00)
[2018-12-25] MEDS: Sodium Chloride 0.9% 1,000 ML IV SCH ×3 (10:10→17:33)
--- NOTE | 2018-12-25 10:24 | PRG ---
DATE OF SERVICE: 12/25/2018 SUBJECTIVE: Ms. Renteria was readmitted to the hospital yesterday with nausea and vomiting and abdominal pain. A CT scan revealed a large volume of fluid within her abdomen. ERCP was performed revealing findings consistent with a biliary leak. A sphincterotomy and stent placement were performed by Dr. Titus. Consideration was given to proceed with a washout, but has decided against this as she had already undergone one anesthetic yesterday, and her intestines would likely be distended secondary to the endoscopy. She tells me that she continues to have significant abdominal pain. She was vomiting before she came into the hospital, but has not been essentially got here. She has had several bowel movements and is urinating well. OBJECTIVE: VITAL SIGNS: Her temperature is 97.4, pulse remains elevated at 125, blood pressure is stable at 116/78. LUNGS: Clear to auscultation. CARDIAC: Regular rate and rhythm. ABDOMEN: Obese and distended and diffusely tender. LABORATORY DATA: Her white blood cell count remains normal at 6.7 with a hemoglobin of 9.9. She has relative left shift with 71 neutrophils and 12% bands. Chemistry profile reveals that her bilirubin has dropped from 1.4 yesterday, down to 1.2. Her creatinine is slightly elevated from 0.8 up to 1.2 today. ASSESSMENT: The patient with a large volume bile leak within her abdomen. She has had an abnormal presentation in regard to this as it did not appear to be consistent with this when she was hospitalized last week. Given the large volume of fluid within her abdomen, discomfort, and her tachycardia, I recommended laparoscopic abdominal washout. I discussed this with the patient. She understands and agrees to proceed surgery. Job ID: [id number]
--- NOTE | 2018-12-25 11:31 | PRG ---
DATE OF SERVICE: 12/25/2018 REASON FOR CONSULTATION: Biliary leak. SUBJECTIVE: This morning, the patient states that she continues to have generalized abdominal pain, but states that is currently controlled with current pain regimen and has not increased since the procedure yesterday. She does endorse some increased nausea in addition to a small volume clear emesis, but no stated episodes of hematemesis, melena, or hematochezia. She has been able to tolerate ice chips thus far, but has not attempted a diet due to lack of one. Otherwise, she denies any subjective fevers or chills. OBJECTIVE: VITAL SIGNS: Temperature 97.4, pulse 125, blood pressure 116/78, respiratory rate 36, saturating 100% on 2 L nasal cannula. GENERAL: The patient was lying in bed, in no acute distress. Alert and oriented x4. CARDIOVASCULAR: Tachycardic rate, but regular rhythm. RESPIRATORY: Clear to auscultation bilaterally. ABDOMEN: Normoactive bowel sounds. Moderate abdominal distention that was tense to palpation. Significant tenderness to palpation in all abdominal quadrants with both light and deep palpation. EXTREMITIES: No cyanosis, clubbing, or edema. LABORATORY DATA: CBC with white blood cell count of 6.7, hemoglobin 9.9, hematocrit 32.2, and platelets 603. Chemistry with a sodium 134, potassium 4, chloride 100, CO2 of 21, BUN 36, creatinine 1.2, glucose 151, AST 20, ALT 15, alkaline phosphatase 223, total bilirubin 1.2. IMAGING DATA: ERCP was performed on December 24, 2018, which showed a blush of contrast outside the small intestine with increased probability of a bile cystic duct stump leak based on occlusion cholangiogram performed at the time of the procedure. A 7 cm 11.5-[place] biliary stent was then successfully placed into the common bile duct with good drainage of bile at the end of the procedure. ASSESSMENT AND PLAN: The patient is a 43-year-old female with past medical history of morbid obesity, uterine fibroids, and more recently undergoing laparoscopic cholecystectomy, now presenting with post cholecystectomy bile leak. Post cholecystectomy bile leak: The patient underwent laparoscopic cholecystectomy on December 12, 2018, and had been seen in the ER in hospital on 2 separate occasions since then with increasing abdominal pain, but minimal amounts of fluid within the right upper quadrant on imaging. However, during this hospitalization, a repeat CT scan showed significant amount of fluid within the abdomen as well as an elevated alkaline phosphatase and T bilirubin consistent with biliary leak. She underwent ERCP on December 24, 2018, with a biliary leak seen on occlusion cholangiogram and successful placement of a 7 cm 11.5-German biliary stent. She has had mild decrease in both alkaline phosphatase and total bilirubin, which may indicate that she is responding to treatment with biliary drainage appropriately coming out of the stent itself. RECOMMENDATIONS: 1. Would continue to trend her LFTs daily. 2. Antibiotic regimen per primary team. 3. Pain control per primary team. 4. The patient will need an EGD in approximately 6 to 8 weeks for removal of the biliary stent and re-evaluation of a possible leak at that time. We would defer to General Surgery for management of her intraabdominal fluid collection at this point. We will follow the patient up as an outpatient when she is discharged. We will sign off at this time. Please call with any questions. Job ID: [id number]
[2018-12-25] MEDS ORDERED: Bupivacaine/Epinephrine 0.25% 30 ML VIAL ONE (13:21)
[2018-12-25] MEDS ORDERED: Fentanyl 100 MCG/2 ML VIAL ONE ×2 (13:44→15:30)
[2018-12-25] MEDS ORDERED: Famotidine/PF 20 mg/2ml Vial ONE (13:44)
[2018-12-25] MEDS ORDERED: SUGAMMADEX SODIUM 500 MG/5 ML VIAL ONE (15:04)
[2018-12-25] MEDS ORDERED: Promethazine HCl 25 MG/ML VIAL IM PRN (15:06)
[2018-12-25] MEDS ORDERED: Promethazine HCl 25 MG/ML VIAL SLOW IVP PRN (15:06)
[2018-12-25] MEDS ORDERED: Meperidine HCl/PF 25 MG/ML VIAL SLOW IVP PRN (15:06)
[2018-12-25] MEDS ORDERED: Ondansetron HCl/PF 4 MG/2 ML Vial IVP PRN (15:06)
[2018-12-25] MEDS ORDERED: Metoclopramide HCl 10 MG/2 ML VIAL ONE (20:16)
[2018-12-25] MEDS ORDERED: PROPOFOL 200 MG/20 ML VIAL ONE (20:16)
[2018-12-25] MEDS ORDERED: Dexamethasone 20 MG/5 ML VIAL ONE (20:16)
[2018-12-25] MEDS ORDERED: Succinylcholine Chloride 20 MG/ML 10 ml SYRINGE FS ONE (20:16)
[2018-12-25] MEDS ORDERED: Ondansetron PF 4 MG/2 ML Vial ONE (20:16)
[2018-12-25] MEDS ORDERED: Lidocaine 1% PF 5 ML VIAL ONE (20:16)
[2018-12-25] MEDS ORDERED: Rocuronium Bromide 10 MG/ML (10ML VIAL) ONE (20:16)
--- NOTE | 2018-12-25 21:52 | OP ---
DATE OF PROCEDURE: 12/25/2018 PREOPERATIVE DIAGNOSIS: Bile peritonitis. POSTOPERATIVE DIAGNOSIS: Bile peritonitis. PROCEDURE PERFORMED: Laparoscopic abdominal washout with aspiration of 4 L of material and extensive intraabdominal irrigation, intraabdominal drain placement. ANESTHESIA: General endotracheal. INDICATIONS: The patient is a 43-year-old obese female, who underwent laparoscopic cholecystectomy on December 12. She had returned postoperatively complaining of abdominal pain, but had a relatively scant amount of fluid within her abdomen and it seemed that her symptoms were more consistent with pneumonia than an intraabdominal process. She was hemodynamically stable and her laboratory studies were unremarkable. She was therefore discharged home. She returned yesterday complaining of persistent abdominal pain with abdominal distention and vomiting. CT scan revealed a large amount of intraabdominal fluid consistent with bile leak. ERCP was performed per Dr. Titus with placement of a stent. Today, she is taken to the operating room for aspiration of the intraabdominal fluid collection and abdominal washout. DESCRIPTION OF OPERATION: Informed consent was obtained. The patient was taken to the operating room, where general endotracheal anesthesia was obtained with the patient in supine position. Her abdomen was very distended. Her abdomen was prepped with ChloraPrep and draped in sterile fashion. Local anesthetic was infiltrated using 0.25% Marcaine with epinephrine. The middle right upper quadrant port was anesthetized and opened. I attempted to place a Veress needle into the abdominal cavity, but the pressure was intraabdominal was such that I could not insufflate any air. I therefore placed a 5 mm port under visual guidance. When this was intraabdominal, I attempted to insufflate air, but again the pressure intraabdominal would not allow this. I therefore aimed the port up over the liver in the right upper quadrant and passed the suction device gently internally. I was able to aspirate about 3.5 L of green bilious material. Following this, I was able to insufflate the abdomen, passed the camera internally. I was eventually able to placed 3 additional ports. I placed one at the lower port in the right upper quadrant and placed a new port in the right lower quadrant and then placed the supraumbilical camera port. Each of these were 5 mm ports. I then copiously irrigated within the abdomen in all 4 quadrants. I inspected the pelvis and there was a bilious type lined over almost all the structures in the abdomen. I could not access the anterior aspect of the pelvis due to the huge uterus that was known to exist. I was able to examine down behind the uterus, however. When I attempted to inspect the subhepatic space, there was material densely adherent up within the gallbladder fossa. I assumed this as fatty tissue, but there was so much inflammation that I could not be certain. I was able to mobilize a little bit from each lateral aspect. The central part appeared to be too densely adherent and I gave up attempts at accessing this for fear of damaging something. I irrigated with 8 L of saline and retrieved most of this using the laparoscopic suction device. I obtained two #19 round fluted drains. One of these had placed through the right lower port and passed this up into the subhepatic space to the extent that I could get the inflammatory material. I placed down into the pelvis posterior to the uterus. Both drains were secured at skin exit with 3-0 nylon suture. All ports and instruments were removed under direct vision. Pneumoperitoneum was carefully evacuated. A 0.25% Marcaine with epinephrine was infiltrated into each port site. Skin edges approximated with 4-0 Monocryl subcuticular suture and Dermabond placed externally. There were no complications. Blood loss was negligible. The patient tolerated the procedure well. She was tachycardic going into the surgery and was a little less tachycardic by the end of the surgery. Job ID: [id number]
[2018-12-25] MEDS: fentaNYL Citrate/PF 2,000 MCG in Sodium Chloride 0.9% 60 ML IV PRN (23:53)
[2018-12-26] MEDS: Sodium Chloride 0.9% 1,000 ML IV SCH ×5 (00:31→18:32)
[2018-12-26] MEDS: Piperacillin/Tazobactam 3.375 GM in Sodium Chloride 0.9% 100 ML IVPB SCH ×6 (00:32→20:00)
[2018-12-26] MEDS: Acetaminophen 1,000 MG in Premix Bag 1 BAG IVPB SCH ×3 (00:32→12:53)
[2018-12-26] MEDS: Ketorolac Tromethamine 30 MG/ML VIAL IVP SCH ×5 (00:33→23:38)
[2018-12-26 05:52] LABS: Band 24 % (5-11); Hemoglobin 7.8 g/dL (12.0-16.0); Lymphocytes 11 % (21-51); MDiff Complete? YES; Mean Corpuscular HGB CONC 30.8 g/dL (32.0-36.0); Mean Platelet Volume 8.6 fL (7.4-10.4); Metamyelocyte 1 % (0-0); Monocytes 5 % (0-10); Neutrophil 59 % (42-75); Platelet Count 452 thou/uL (130-400); Platelet Morphology Comment Appears Increased; Red Blood Cell (RBC) Count 3.71 mill/uL (4.20-5.40); White Blood Cell (WBC) Count 7.7 thou/uL (4.8-10.8)
[2018-12-26 06:21] LABS: ALT (SGPT) 17 U/L (8-55); AST (SGOT) 29 U/L (5-34); Albumin 2.5 g/dL (3.5-5.0); Alkaline Phosphatase 159 U/L (40-150); Anion Gap 13 mmol/L (10-20); BUN (Urea Nitrogen) 27 mg/dL (7.0-18.7); Bilirubin, Total 0.8 mg/dL (0.2-1.2); Calc. Creatinine Clearance 177 mL/min (70-130); Calcium 8.6 mg/dL (7.8-10.44); Carbon Dioxide 21 mmol/L (22-29); Chloride 106 mmol/L (98-107); Estimated GFR-MDRD Greater than 90; Glucose 129 mg/dL (70-105); Protein, Total 5.5 g/dL (6.0-8.3); Sodium 136 mmol/L (136-145)
[2018-12-26] MEDS: Pantoprazole 40 MG VIAL IVP SCH (10:13)
[2018-12-26] MEDS ORDERED: Piperacillin/Tazobactam 3.375 GM in Sodium Chloride 0.9% 100 ML IVPB SCH (16:00)
[2018-12-27] MEDS: Sodium Chloride 0.9% 1,000 ML IV SCH ×6 (02:10→21:01)
[2018-12-27] MEDS: Piperacillin/Tazobactam 3.375 GM in Sodium Chloride 0.9% 100 ML IVPB SCH ×4 (02:10→20:57)
[2018-12-27] MEDS: fentaNYL Citrate/PF 2,000 MCG in Sodium Chloride 0.9% 60 ML IV PRN (04:59)
[2018-12-27] MEDS: Ketorolac Tromethamine 30 MG/ML VIAL IVP SCH ×3 (06:19→17:52)
--- NOTE | 2018-12-27 07:10 | PDOC.GSPN ---
Surgery Progress Note: Subj - Subjective Patient reports: no new complaints, had a bowel movement, feels better, tolerating liquids well, voiding w/o difficulty, pain is less Narrative: Cynthia Renteria is a 43YO obese HF w/ sig. PMH of ALDO who originally presented to the hospital on 12/12 for an elective lap. haylee. The operation was unremarkable and pt was dc home only to return on 12/16 for complaints of ab. pain, which was deemed to be pneumonia and pt was dc home again after a few days of improvement. On 12/24, pt presented to the hospital once again for persistent ab. pain, distention, and vomiting. Pt was dx w/ bile leak and received both an ERCP stent and an ab. washout w/ VIVIANE drain placement on 12/25. Overnight, pt's condition was stable and afebrile. Pt felt "ok" and said her pain is controlled at a 7/10 on the pain scale w/ scheduled toradol 30mg and PRN fentanyl 2000mcg. Pt had 3 bowel movements yesterday and 2 bowel movements overnight. Pt is able to walk down the hallway w/ nurse and to the bathroom by herself. Pt has some SOB w/ walking, but her O2% remained stable while her nasal cannula O2 was decreased from 1.5L to 1L. Pt has been using the inspiratory spirometer as instructed and she is aiming for 1500mL while her current best is 1000mL. Pt tolerated clear liquid diet and ice chip yesterday w/ o N/V, she has an appetite, and is ready to advance her diet. Surgery Progress Note: Obj - Vital signs Vital signs: Vital Signs - Most Recent Temp Pulse Resp BP Pulse Ox 97.7 F 89 18 120/76 96 12/27/18 04:00 12/27/18 04:00 12/27/18 04:00 12/27/18 04:00 12/27/18 04:00 - Physical Exam General: no distress Cardiovascular: regular rate and rhythm Respiratory: clear to auscultation, normal expansion, normal respiratory effort Abdomen: soft, positive bowel sounds Integumentary: no abnormal pigmentation, no growths, no rash Musculoskeletal: other (bilateral LE edema) Psychiatric: oriented to time, oriented to person, oriented to place Wound: dressing clean,dry,intact, healing well, other (non tender to touch) Additional exam: VIVIANE drain A drained 130mL and VIVIANE drain B drained 70mL. drain A had green fluid 2 days ago but now is mostly serosanguineous while drain B has been consistently serous. Surgery Progress Note: Results - Labs Result Diagrams: 12/26/18 05:19 12/26/18 05:19 Surgery Progress Note: A/P - Plan Plan: Pt's lap haylee post op recovery was unexpectedly complicated by pneumonia and bile leakage but she seemed to be turning the corner and her lab values are improving. Pt is abdominal washout POD2 today and her pain is well controlled while her vitals have been stable. Pt's WBC remained WNL throughout this visit. Her Hgb and Hct both steadily decreased from 10.7L and 33.8L respectively on to 7.8L and 25.2L on 12/26. Pt has had a hx of low H&H however, and her values have been low since at least July/2018. Pt's plt count, BUN, alk phos were WNL at the last dc but have been high at 608H, 30H, and 265H respectively on 12/24, but all of them decreased to 452H, 27H, and 159H on 12/26. Continue encouraging pt to walk and use the inspiratory spirometer as instructed. Complete the zosyn 3.375g IV Q6 REY tx regimen as prescribed and taper pt down on pain med. Maintain pantoprazole 40mg IV QD REY for DVT prophylaxis and consider dc if pt is improving well.
[2018-12-27] MEDS: Pantoprazole 40 MG VIAL IVP SCH (09:00)
[2018-12-27] MEDS ORDERED: HYDROcodone/Acetaminophen 7.5/325 mg Tablet PO PRN (09:09)
[2018-12-27 09:11] LABS: #Lymphocytes 0.9 thou/uL (1.20-3.40); #Monocytes 0.4 thou/uL (0.11-0.59); #Neutrophils 5.7 thou/uL (1.40-6.50); %Basophils 0.3 % (0.0-1.0); %Eosinophils 0.4 % (0.0-10.0); %Lymphocytes 13.2 % (21.0-51.0); %Monocytes 5.2 % (0.0-10.0); %Neutrophils 80.9 % (42.0-75.0); Hemoglobin 7.4 g/dL (12.0-16.0); Mean Corpuscular HGB CONC 30.3 g/dL (32.0-36.0); Mean Corpuscular Hemoglobin 20.4 pg (27.0-31.0); Mean Corpuscular Volume 67.5 fL (78.0-98.0); Platelet Count 528 thou/uL (130-400); RBC Distribution Width 19.2 % (11.5-14.5); Red Blood Cell (RBC) Count 3.63 mill/uL (4.20-5.40)
[2018-12-27 09:31] LABS: ALT (SGPT) 15 U/L (8-55); AST (SGOT) 23 U/L (5-34); Albumin 2.6 g/dL (3.5-5.0); Alkaline Phosphatase 157 U/L (40-110); Anion Gap 10 mmol/L (10-20); BUN (Urea Nitrogen) 22 mg/dL (7.0-18.7); Bilirubin, Total 0.6 mg/dL (0.2-1.2); Calc. Creatinine Clearance 189 mL/min (70-130); Calcium 8.8 mg/dL (7.8-10.44); Carbon Dioxide 23 mmol/L (22-29); Chloride 109 mmol/L (98-107); Estimated GFR-MDRD Greater than 90; Globulin 2.9 g/dL (2.4-3.5); Glucose 95 mg/dL (70-105); Protein, Total 5.5 g/dL (6.0-8.3); Sodium 138 mmol/L (136-145)
[2018-12-27] MEDS: HYDROcodone/Acetaminophen 7.5/325 mg Tablet PO PRN ×4 (11:03→23:42)
[2018-12-28] MEDS: Sodium Chloride 0.9% 1,000 ML IV SCH ×3 (02:13→14:06)
[2018-12-28] MEDS: Piperacillin/Tazobactam 3.375 GM in Sodium Chloride 0.9% 100 ML IVPB SCH ×2 (02:14→08:49)
[2018-12-28] MEDS: HYDROcodone/Acetaminophen 7.5/325 mg Tablet PO PRN ×3 (04:12→13:29)
[2018-12-28 07:41] VITALS: TEMP 98.2
[2018-12-28] MEDS: Pantoprazole 40 MG VIAL IVP SCH (08:55)
[2018-12-28 09:56] LABS: #Eosinphils 0.2 thou/uL (0.0-0.7); #Lymphocytes 1.3 thou/uL (1.20-3.40); #Monocytes 0.5 thou/uL (0.11-0.59); #Neutrophils 7.3 thou/uL (1.40-6.50); %Basophils 0.2 % (0.0-1.0); %Eosinophils 1.9 % (0.0-10.0); %Lymphocytes 14.4 % (21.0-51.0); %Neutrophils 78.4 % (42.0-75.0); Hemoglobin 8.2 g/dL (12.0-16.0); Mean Corpuscular HGB CONC 30.9 g/dL (32.0-36.0); Mean Corpuscular Hemoglobin 20.6 pg (27.0-31.0); Mean Corpuscular Volume 66.6 fL (78.0-98.0); Mean Platelet Volume 7.7 fL (7.4-10.4); Platelet Count 646 thou/uL (130-400); RBC Distribution Width 19.4 % (11.5-14.5); Red Blood Cell (RBC) Count 3.97 mill/uL (4.20-5.40); White Blood Cell (WBC) Count 9.3 thou/uL (4.8-10.8)
[2018-12-28] MEDS ORDERED: Ciprofloxacin 500 MG TAB PO SCH ×2 (11:00→20:00)
[2018-12-28 11:57] VITALS: BP 114/74
[2018-12-28] MEDS ORDERED: Ferrous Sulfate 325 MG TAB PO SCH (12:00)
--- NOTE | 2018-12-28 15:45 | PQF ---
OTONIEL BEAVER BRYAN DAVID MD [id number] SURG [id number] CLINICAL DOCUMENTATION IMPROVEMENT CLARIFICATION FORM: ICD-10 Updated PLEASE DO AN ADDENDUM TO THE PROGRESS NOTE WITH ANY DOCUMENTATION UPDATES OR ADDITIONS AND CARRY THROUGH TO DC SUMMARY. THANK YOU. DATE: 12/28/18 ATTN:DR. Carmelo ARAUZ Please exercise your independent, professional judgment in responding to the clarification form. Clinical indicators are provided on the bottom of this form for your review. Please check appropriate box(s): [ x ] Hyponatremia please specify etiology, if known __Dehydration/vomitting__ [ ] Hyponatremia due to SIADH (Syndrome of Inappropriate Secretion of Antidiuretic Hormone) [ ] Other diagnosis [ ] Unable to determine In addition, please specify: Present on Admission (POA): [ ] Yes [ ] No [ ] Unable to determine CLINICAL INDICATORS - SIGNS / SYMPTOMS / LABS 12/24 SODIUM: 131 12/25 SODIUM: 134 RISK: RECENT ABDOMINAL SX (12/25/DION) NAUSEA/VOMITING ( ED REPORT/12/24) TREATMENTS: SODIUM CHLORIDE IV (12/25-12/28 SERIAL LABS (12/24-12/27) THANK YOU! JOSE (This form is maintained as a part of the permanent medical record) 2014 [employer] All Rights Reserved [email or web address] [phone] MTDD
--- NOTE | 2018-12-29 14:12 | DIS ---
DATE OF ADMISSION: 12/24/2018 DATE OF DISCHARGE: 12/28/2018 ADMISSION DIAGNOSIS: Biliary leak following laparoscopic cholecystectomy almost 2 weeks previously. DISCHARGE DIAGNOSIS: Biliary leak following laparoscopic cholecystectomy almost 2 weeks previously. PROCEDURES PERFORMED: Dr. Titus performed an ERCP with stent placement on December 24. I performed a laparoscopic washout of her abdomen with extensive intraabdominal irrigation and aspiration of 4 L of intraabdominal contents with postoperative drain placement x2. ADMISSION HISTORY: The patient is a 43-year-old obese female, who underwent what appeared to be an uneventful laparoscopic cholecystectomy on December 12. She had returned to the hospital five days later with complaint of abdominal pain and shortness of breath. At that time, it was felt that her symptoms were related to atelectasis and pneumonia. She seemed to improve and was discharged home after 3-day hospitalization. She returns at this time a few days later with worsening of abdominal pain and nausea and vomiting. CT scan revealed a large volume of intraabdominal fluid consistent with bile leak and distended bowel, likely consistent with an ileus related to the inflammatory process. Interestingly, her white blood cell count was entirely normal, although she did have a left shift. She had persistent anemia, which she had before her surgery. Her bilirubin level had risen to 1.4 at the time of her admission. HOSPITAL COURSE: The patient was admitted to the hospital and placed on IV fluids and IV antibiotics per Dr. Guzman. Dr. Titus was consulted and he performed an expeditious ERCP, which appeared to reveal a bile leak. The patient therefore underwent sphincterotomy and stent placement. The next day, I resumed her care and took her to the operating room for a laparoscopic washout. She had extensive bilious material within her abdomen. She was irrigated with 8 L of fluid after all material was aspirated and I placed one drain in the subhepatic space and one into the pelvis. She had an appropriate recovery after her surgery. She was hungry and advanced her diet uneventfully. She resumed bowel function, was ambulating well. She was afebrile with normal vital signs. She was felt to be stable for discharge on postoperative day #3. She was discharged home with a prescription for ciprofloxacin to cover any residual potential infectious matters. She was also prescribed iron sulfate as her hemoglobin was 8 at the time of discharge. Finally, she was given a prescription for hydrocodone, although she was instructed to minimize the use of this. She will follow up in my office in 10 to 14 days for followup. I will not be there at that time and she will follow up with one of my associates. She was instructed to call my office at any time if she has problems or concerns after her discharge. Job ID: [id number]
--- NOTE | 2019-01-05 12:50 | EKG ---
Test Reason : Blood Pressure : / mmHG Vent. Rate : 145 BPM Atrial Rate : 145 BPM P-R Int : 122 ms QRS Dur : 074 ms QT Int : 268 ms P-R-T Axes : 047 021 030 degrees QTc Int : 416 ms Sinus tachycardia Otherwise normal ECG Confirmed by KYRA GUTIERREZ, SANDRO ([id number]), editor publications YESICA ROE ([id number]) on 01/05/2019 12:49:55 PM Referred By: Confirmed By:SANDRO RAE MD
== END 2018-12-28 16:00 | disposition home or self-care (01) | DRG 393 ==
LOC: ERS 08:03 → SURG A 10:15
PROVIDERS: ADMIT Surgery; ATTEND Surgery
PROC: 0F798DZ Dilation of Common Bile Duct with Intraluminal Device, Via Natural or Artificial Opening Endoscopic (ICD-10-PCS; principal; 2018-12-24)
PROC: BF101ZZ Fluoroscopy of Bile Ducts using Low Osmolar Contrast (ICD-10-PCS; 2018-12-24)
PROC: 0W9G40Z Drainage of Peritoneal Cavity with Drainage Device, Percutaneous Endoscopic Approach (ICD-10-PCS; 2018-12-25)
PROC: 3E1M38Z Irrigation of Peritoneal Cavity using Irrigating Substance, Percutaneous Approach (ICD-10-PCS; 2018-12-25)
DX: K91.89 Other postprocedural complications and disorders of digestive system (principal); K65.3 Choleperitonitis; J18.9 Pneumonia, unspecified organism; Z68.41 Body mass index [BMI] 40.0-44.9, adult; E87.1 Hypo-osmolality and hyponatremia; E66.01 Morbid (severe) obesity due to excess calories; Z90.49 Acquired absence of other specified parts of digestive tract; Z79.899 Other long term (current) drug therapy; R00.0 Tachycardia, unspecified
CPT/HCPCS: 36415; 71045; 74177; 74330; 80053; 82550; 83605; 83690; 84703; 85025; 87040; 93005; 96361; 96365; 96375; C9113; J0131; J1100; J1610; J1885; J2001; J2270; J2405; J2543; J2550; J2704; J2765; J3010; J3490; Q9966; S0028

== ENCOUNTER 2019-02-12 06:59 | Day surgery (SDC) | payer BC ==
[2019-02-09 11:54] VITALS: BMI 40.2
[2019-02-12] MEDS ORDERED: Fentanyl 100 MCG/2 ML VIAL ONE (08:38)
[2019-02-12] MEDS ORDERED: Midazolam HCl 2 mg/2 ml Vial ONE (08:44)
[2019-02-12] MEDS ORDERED: Iothalamate Meglumine 60% 50 ML VIAL FS ONE (09:09)
[2019-02-12] MEDS ORDERED: PROPOFOL 200 MG/20 ML VIAL ONE (10:20)
[2019-02-12] MEDS ORDERED: Rocuronium Bromide 10 MG/ML (10ML VIAL) ONE (10:20)
[2019-02-12] MEDS ORDERED: PHENYLEPHRINE-NS 100 MCG/ML 10 ML SYRINGE ONE (10:20)
[2019-02-12] MEDS ORDERED: Ketorolac Tromethamine 30 MG/ML VIAL ONE (10:20)
[2019-02-12] MEDS ORDERED: Ondansetron PF 4 MG/2 ML Vial ONE (10:20)
[2019-02-12] MEDS ORDERED: Dexamethasone 20 MG/5 ML VIAL ONE (10:20)
[2019-02-12] MEDS ORDERED: Glycopyrrolate 0.2 MG/ML 5 ML SYRINGE ONE (10:20)
[2019-02-12] MEDS ORDERED: Lidocaine 1% PF 5 ML VIAL ONE (10:20)
--- NOTE | 2019-02-12 11:57 | RAD ---
ERCP: DATE: 02/12/19 HISTORY: Stent removal. FINDINGS: A total of three images are presented for interpretation. These show a nondilated common bile duct. J ust below the level of the confluence of the right and left hepatic ducts, there is an area where I c annot exclude the presence of a stone versus air bubble. Post drainage film does show a couple of kwaku ling defects, again potentially air bubbles. There does appear to be emptying into the duodenum. IMPRESSION: Small filling defects within nondilated common bile duct. These could represent air bubbles. The comm on duct is normal in caliber. POS: TPC
--- NOTE | 2019-02-12 15:25 | OP ---
DATE OF PROCEDURE: 02/12/2019 PROCEDURES PERFORMED: Endoscopic retrograde cholangiopancreatography with stent removal and cholangiogram. INDICATION FOR PROCEDURE: Prior history of biliary leak requiring biliary stent placement, follow up to biliary leak and assessment for continued leak. DESCRIPTION OF PROCEDURE: After the risks and benefits of the procedure were explained to the patient including risks of bleeding, infection, perforation, reactions to anesthesia, aspiration, post ERCP pancreatitis, and/or pain, informed consent was obtained. The patient was then taken to the endoscopy suite, where the general anesthesia was administered via an endotracheal tube intubation and induction anesthesia per Anesthesia support. Once the patient was sedated and intubated, she was maneuvered into the prone position in anticipation of the ERCP. Once in adequate position, the standard duodenoscope was introduced into the mouth and advanced through the esophagus, stomach, and the proximal small intestines with the findings listed below. The patient tolerated the procedure well with no immediate perioperative complications. Upon conclusion of the procedure, all equipment was removed from the patient and she was transferred to the Day Stay area in satisfactory condition. FINDINGS: EGD findings: Limited views were obtained of the esophagus, stomach, and the proximal small intestines during the EGD portion of this exam. Of the mucosa visualized, normal-appearing mucosa was seen in the esophagus, stomach, and the proximal small intestines with no evidence of erosions, ulcerations, mass, lesions, or active/recent bleeding. ERCP findings: The duodenoscope was advanced into the second portion of the duodenum, where the ampulla was easily identified with the biliary stent seen extruding from the ampulla itself, approximately 1 cm. Using a snare, the biliary stent was then secured and the biliary stent was then removed from the common bile duct, given that it would not fit through the working channel of the duodenoscope, the entire scope was removed from the patient along with the stent. The stent was then removed from the snare and the snare was removed from the duodenoscope with the duodenoscope then readvanced back to the second portion of the duodenum. Upon evaluation of the ampulla without the stent, it was normal in appearance with no evidence of breakdown or mass lesions. A 9 to 12 biliary balloon was then advanced through the duodenoscope and into the common bile duct successfully and an occlusion cholangiogram was performed. Using the 12 mm balloon, successful occlusion of the common bile duct was achieved with instillation of contrast showing no evidence of filling defects nor any evidence of biliary leak. Both the intra and extrahepatic biliary trees were both well visualized with no evidence of abnormalities. Given evidence of healing from the biliary leak itself, all equipment was then removed from the patient with the procedure terminated at that time. IMPRESSION: 1. Successful extraction of biliary stent from the common bile duct. 2. No evidence of continued biliary leak. RECOMMENDATIONS: 1. No further endoscopic intervention is necessary, given no evidence of biliary leak on imaging today. 2. She will follow up in the GI clinic as scheduled on March 12, 2019, for re-evaluation of abdominal pain and iron deficiency anemia. Job ID: [id number]
== END 2019-02-12 11:00 | disposition home or self-care (01) ==
LOC: SDC 06:59
PROVIDERS: ATTEND Internal Medicine
PROC: 0FPB8DZ Removal of Intraluminal Device from Hepatobiliary Duct, Via Natural or Artificial Opening Endoscopic (ICD-10-PCS; principal; 2019-02-12)
DX: Z09 Encounter for follow-up examination after completed treatment for conditions other than malignant neoplasm (principal); D50.9 Iron deficiency anemia, unspecified; R10.9 Unspecified abdominal pain; Z87.19 Personal history of other diseases of the digestive system; Z96.89 Presence of other specified functional implants
CPT/HCPCS: 74330; J1100; J1885; J2001; J2250; J2405; J2704; J3010

== ENCOUNTER 2019-03-29 15:15 | Inpatient (IN) | payer BC ==
[2019-03-29 14:28] VITALS: BMI 41.7
[2019-03-29 15:10] LABS: Hemoglobin 12.2 g/dL (12.0-16.0); Mean Corpuscular HGB CONC 33.3 g/dL (32.0-36.0); Mean Corpuscular Hemoglobin 27.9 pg (27.0-31.0); Mean Corpuscular Volume 83.9 fL (78.0-98.0); Mean Platelet Volume 9.1 fL (7.4-10.4); Platelet Count 228 thou/uL (130-400); RBC Distribution Width 16.4 % (11.5-14.5); Red Blood Cell (RBC) Count 4.38 mill/uL (4.20-5.40); White Blood Cell (WBC) Count 5.9 thou/uL (4.8-10.8)
[2019-03-29 15:17] LABS: BHCG - Serum Negative (NEGATIVE); Pregs Control Background? CLEAR/WHITE (CLR/WHITE); Pregs Control Bar Appear? YES (CONTROL BAR)
[2019-04-02] MEDS ORDERED: CeleCOXIB 100 MG CAP ONE (08:44)
[2019-04-02] MEDS ORDERED: Scopolamine 1.5 mg/72 hour Patch ONE (08:44)
[2019-04-02] MEDS ORDERED: Famotidine/PF 20 mg/2ml Vial ONE (08:44)
[2019-04-02] MEDS ORDERED: Gabapentin 300 MG CAP ONE (08:44)
[2019-04-02] MEDS ORDERED: Midazolam HCl 2 mg/2 ml Vial ONE (09:23)
[2019-04-02] MEDS ORDERED: Dexamethasone 4 mg/ml Vial ONE (09:23)
[2019-04-02] MEDS ORDERED: Fentanyl 100 MCG/2 ML VIAL ONE ×3 (09:23→13:35)
[2019-04-02] MEDS ORDERED: Bupivacaine PF 0.5% 30 ML VIAL ONE (09:43)
[2019-04-02] MEDS ORDERED: Rocuronium Bromide 10 MG/ML (10ML VIAL) ONE (09:45)
[2019-04-02] MEDS ORDERED: PROPOFOL 200 MG/20 ML VIAL ONE (09:45)
[2019-04-02] MEDS ORDERED: Bupivacaine HCl 0.5%/Epinephrine 1:200,000/PF 30 ml Vial ONE (09:45)
[2019-04-02] MEDS ORDERED: Dexamethasone 20 MG/5 ML VIAL ONE ×2 (09:45)
[2019-04-02] MEDS ORDERED: diphenhydrAMINE 50 MG/ML VIAL ONE (09:45)
[2019-04-02] MEDS ORDERED: Glycopyrrolate 0.2 MG/ML 5 ML SYRINGE ONE (09:45)
[2019-04-02] MEDS ORDERED: Ondansetron PF 4 MG/2 ML Vial ONE (09:45)
--- NOTE | 2019-04-02 12:15 | OP ---
DATE OF PROCEDURE: 04/02/2019 PREOPERATIVE DIAGNOSIS: Large fibroid status post hysterectomy. I was asked to attend OR to assess small bowel adhesions and serosal tear. POSTOPERATIVE DIAGNOSES: Large fibroid status post hysterectomy. I was asked to attend OR to assess small bowel adhesions and serosal tear. PROCEDURE PERFORMED: Small bowel and serosal tear repair of an adherent to the procedure, not a complication. ANESTHESIA: General. DESCRIPTION OF PROCEDURE: Dr. Jignesh Schafer in the operating room was performing open hysterectomy for large fibroid and had a segment of small bowel, it was adherent to the uterine fibroid, that suffered a serosal tear, inherent in the procedure due to adhesions to the fibroid. The serosal tear was closed transversely with interrupted sutures of 3-0 silk seromuscular. Good lumen was palpated. The patient tolerated procedure well. Dr. Jignesh Schafer completed abdominal wound closure. Job ID: [id number]
[2019-04-02] MEDS ORDERED: Promethazine HCl 25 MG/ML VIAL IM PRN ×2 (12:40→14:18)
[2019-04-02] MEDS ORDERED: Ondansetron HCl/PF 4 MG/2 ML Vial IVP PRN (12:40)
[2019-04-02] MEDS ORDERED: HYDROmorphone 2 MG/ML VIAL SLOW IVP PRN (12:40)
[2019-04-02] MEDS ORDERED: Meperidine HCl/PF 25 MG/ML VIAL ONE (12:57)
[2019-04-02] MEDS ORDERED: Simethicone Chewable 80 MG TAB PO PRN (14:18)
[2019-04-02] MEDS ORDERED: Lactated Ringer's 1,000 ML IV SCH (14:18)
[2019-04-02] MEDS ORDERED: Morphine 4 MG/ML VIAL SLOW IVP PRN (14:18)
[2019-04-02] MEDS ORDERED: diphenhydrAMINE 25 MG CAP PO PRN (14:18)
[2019-04-02] MEDS ORDERED: Estradiol 0.05mg/24 Hour Patch (Weekly) TD SCH (14:18)
[2019-04-02] MEDS ORDERED: Zolpidem Tartrate 5 MG TAB PO PRN (14:18)
[2019-04-02] MEDS ORDERED: HYDROcodone/Acetaminophen 5/325 mg Tablet PO PRN (14:18)
[2019-04-02] MEDS ORDERED: Bisacodyl 10 MG SUPP PR PRN (14:18)
[2019-04-02] MEDS ORDERED: Meperidine HCl/PF 25 MG/ML VIAL SLOW IVP PRN (14:18)
[2019-04-02] MEDS ORDERED: Ondansetron PF 4 MG/2 ML Vial IVP PRN (14:18)
[2019-04-02] MEDS: Sodium Chloride 0.9% 1,000 ML IV SCH (15:43)
--- NOTE | 2019-04-02 15:55 | OP ---
DATE OF PROCEDURE: 04/02/2019 PREOPERATIVE DIAGNOSIS: Large fibroid uterus. PROCEDURES PERFORMED: 1. Total abdominal hysterectomy with bilateral salpingo-oophorectomy. 2. Oversew of bowel serosa at the small intestine. INTRAOPERATIVE CONSULT: Adalberto Villalba MD. COTTON WEIGHER: Jessica Álvarez MD. ANESTHESIA: TAP block and GETA COMPLICATIONS: None. ESTIMATED BLOOD LOSS: 500 mL. OPERATIVE FINDINGS: 1. Large fibroid uterus, that palpated well above the umbilicus. 2. Large fibroid uterus with multiple large pedunculated fibroids. 3. Normal-appearing tubes and ovaries bilaterally. 4. Adhesions of the small intestine to a pedunculated fibroid with serosal defect after removal, which was oversewed by Dr. Villalba in the OR prior to closing the abdomen. 5. Surgical sites hemostatic. PROCEDURE IN DETAIL: The patient was taken back to the OR with IV fluids running. Once she was in the OR, general anesthesia was obtained. A Higgins catheter was placed using sterile technique and the abdomen was prepped and draped in normal fashion for abdominal hysterectomy. Surgeons were gowned and gloved. The fibroid uterus was palpated through the abdomen and a marking pen was used to outline the planned area of skin incision from just above the pubic symphysis to approximately 2 cm above the umbilicus. A scalpel was then used to incise the skin the length of the incision. Bovie cauterization was used to cauterize the subcutaneous fat down to the layer of the rectus fascia the full length of the incision. Blunt dissection was also used to reach the fascial layer as well. Of note, there was approximate 4 to 5 cm of subcutaneous fat between the skin and the fascial layer. The fascia was then incised in the midline. It was extended using Elizabeth scissors the full length of the incision. The peritoneum was then bluntly entered and stretched laterally. The uterine specimen was palpated and moved freely. Small bowel was noted to be adhered to a large pedunculated fibroid, extending off the right side of the fundus. Metzenbaum scissors and a lap sponge were used to gently peel the adhesions away from the fibroid. The specimen was then elevated through the abdominal wall incision. An O'Manjit-O'Miller retractor was then placed into the abdominal cavity. The bowel was packed away and the retractor blades were assembled to the retractor. Beginning on the patient's left side, the left IP ligament was identified. The ureter was noted to be running well away from the adnexa and uterine anatomy. The IP ligament was isolated, transected, and suture ligated after it was clamped and cut. The round ligament on the patient's left side was then identified, elevated with a [place] clamp. It was then suture ligated and divided with Bovie cauterization into anterior and posterior leaves. Dissection was carried down towards the level of the uterine artery. The broad ligament was further dissected down towards uterine artery near the cervix, which was skeletonized prior to reaching the uterine artery. Once the uterine artery was reached, it was clamped with a Rosette clamp, cut and suture ligated with hemostasis noted. The anterior leaf was taken down toward the level of the cervix and the bladder was dissected away from the cervix. Next, attention was turned to the contralateral side. In similar fashion, the right IP ligament was identified, transected and cut, it was suture ligated as well. The patient's ureter on the right side was noted to course away from the right adnexa and uterus as well. The round ligament on the patient's right side was easily grasped and identified. It was suture ligated and then transected with Bovie cauterization. The anterior and posterior leaves of the round ligament were taken down towards the level of the uterine artery, which was then skeletonized. The bladder flap was completed from the patient's right side, leaning towards the midline and the contralateral dissection, and the bladder was further dissected away from the cervix. The uterine artery on the patient's right side was clamped with a Rosette clamp, cut and suture ligated. The bladder was then further dissected away from the cervix. Two straight Rosette's were placed between the uterine artery dissection and the cervix on both sides of the cervix. Scalpel was used to transect the cardinal ligament. Both pedicles were suture ligated. At this point, the decision was made to amputate the specimen for better visualization of the proximal end of the cervix. Bovie cauterization was used to transect the narrow cervix and remove the large specimen of the abdomen and to the instrument table. The remaining cervical stump was grasped with a double-tooth tenaculum. Curved Rosette's were placed both sides at the cervical vaginal junction. The remaining small piece of cervical stump was excised. The vaginal cuff was closed at the angles with a Hofmeister suture on each side. The medial part of the vaginal cuff was closed with a series of [id number] sutures. After the vaginal cuff was closed and noted to be hemostatic, the cul-de-sac was copiously irrigated and dried. No areas of bleeding were noted at the bladder flap dissection, at the vaginal cuff, or at the sidewall dissections. The area of small bowel that had been adhered to the fibroid was inspected and a small amount of bleeding was noted at the serosal edge. A general surgery intraoperative consult was made and Dr. Villalba presented, examined the approximate 2 cm of bowel serosa, that had been adhered to the fibroid, and oversewed the serosal edge. After this was complete and the counts were correct, the O'Manjit-OMae retractor was removed from the abdominal cavity. The superior apex of the fascia was grasped with a Cailin clamp and elevated off the abdominal wall. Looped PDS suture was used in a running fashion to close the fascia. After the fascia was closed, it was palpated and no defects were noted. The subcutaneous tissue was then irrigated and dried. No areas of bleeding were noted. The subcutaneous tissue was reapproximated in 2 layers with plain gut suture. The skin was reapproximated with a sterile stapler and a STEPHANE sterile dressing was applied. The patient was then cleaned dry, extubated, and transferred to the recovery room in good condition. Job ID: [id number] [facility]
[2019-04-02] MEDS: Ketorolac Tromethamine 30 MG/ML VIAL IVP SCH (18:10)
[2019-04-02] MEDS: HYDROcodone/Acetaminophen 5/325 mg Tablet PO PRN (19:01)
[2019-04-03] MEDS: Ketorolac Tromethamine 30 MG/ML VIAL IVP SCH ×2 (06:02→06:03)
[2019-04-03 06:20] LABS: Hemoglobin 9.5 g/dL (12.0-16.0); Mean Corpuscular Volume 86.7 fL (78.0-98.0); Mean Platelet Volume 8.3 fL (7.4-10.4); Platelet Count 224 thou/uL (130-400); RBC Distribution Width 16.1 % (11.5-14.5); Red Blood Cell (RBC) Count 3.66 mill/uL (4.20-5.40); White Blood Cell (WBC) Count 8.5 thou/uL (4.8-10.8)
[2019-04-03] MEDS: Sodium Chloride 0.9% 1,000 ML IV SCH (06:40)
--- NOTE | 2019-04-03 08:10 | PDOC.EVN ---
Event Note - Event Note Event Note: POD1 S: minimal pain, elias reg diet, no concerns, considering DC today O: VS WNL NAD A and O Abd appropriate tenderness, nondistended, sal dressing in place Ext: no cords A/P: POD1 sp TAHBSO for large fibroid, doing well, advance orders today, anticipate DC later this afternoon.
[2019-04-03] MEDS: HYDROcodone/Acetaminophen 5/325 mg Tablet PO PRN ×2 (09:00→13:32)
[2019-04-03 11:54] VITALS: BP 101/49; TEMP 97.8
[2019-04-07] MEDS ORDERED: Ibuprofen 800 MG TAB PO SCH (22:00)
== END 2019-04-03 14:35 | disposition home or self-care (01) | DRG 742 ==
LOC: SURG A 04-02 07:58 → 3SE 04-02 14:04
PROVIDERS: ADMIT Obstetrics & Gynecology; ATTEND Obstetrics & Gynecology
PROC: 0UT90ZZ Resection of Uterus, Open Approach (ICD-10-PCS; principal; 2019-04-02)
PROC: 0UT70ZZ Resection of Bilateral Fallopian Tubes, Open Approach (ICD-10-PCS; 2019-04-02)
PROC: 0UT20ZZ Resection of Bilateral Ovaries, Open Approach (ICD-10-PCS; 2019-04-02)
DX: D25.9 Leiomyoma of uterus, unspecified (principal); Z68.41 Body mass index [BMI] 40.0-44.9, adult; N92.0 Excessive and frequent menstruation with regular cycle; K66.0 Peritoneal adhesions (postprocedural) (postinfection); E66.9 Obesity, unspecified; F17.200 Nicotine dependence, unspecified, uncomplicated; F10.10 Alcohol abuse, uncomplicated
CPT/HCPCS: 36415; 84703; 85027; 86850; 86900; 86901; 88307; J0670; J0690; J1100; J1200; J1885; J2175; J2250; J2270; J2405; J2704; J3010; S0020; S0028

== ENCOUNTER 2020-02-13 15:18 | Outpatient (CLI) | payer BC ==
--- NOTE | 2020-02-13 16:08 | MMO ---
Bilateral MAMMO Bilat Screen [facility]DI[facility]. CLINICAL HISTORY: Patient is 44 years old and is seen for screening. The patient has the following family history of breast cancer: paternal aunt. The patient has no personal history of cancer. VIEWS: The views performed were: bilateral craniocaudal; bilateral craniocaudal with tomosynthesis; and bilateral mediolateral oblique with tomosynthesis. FILMS COMPARED: The present examination has been compared to prior imaging studies performed at [facility] on 06/17/2015, 06/21/2016, 07/22/2017 and 07/26/2018. This study has been interpreted with the assistance of computer-aided detection. MAMMOGRAM FINDINGS: There are scattered fibroglandular densities. Benign calcifications are noted bilaterally. Right subaerolar nodule is stable. There are no suspicious masses, suspicious calcifications, or new areas of architectural distortion. IMPRESSION: THERE IS NO MAMMOGRAPHIC EVIDENCE OF MALIGNANCY. A ROUTINE FOLLOW-UP MAMMOGRAM IN 1 YEAR IS RECOMMENDED. THE RESULTS OF THIS EXAM WERE SENT TO THE PATIENT. ACR BI-RADS Category 2 - Benign finding MAMMOGRAPHY NOTE: 1. A negative mammogram report should not delay a biopsy if a dominant of clinically suspicious mass is present. 2. Approximately 10% to 15% of breast cancers are not detected by mammography. 3. Adenosis and dense breasts may obscure an underlying neoplasm. Reported by: BARBARA WEBSTER MD Electonically Signed: [id number]
== END 2020-02-13 15:19 | disposition home or self-care (01) ==
LOC: BICMAMMO 15:18
PROVIDERS: ATTEND Family Medicine
DX: Z12.31 Encounter for screening mammogram for malignant neoplasm of breast (principal); Z80.3 Family history of malignant neoplasm of breast
CPT/HCPCS: 77063; 77067

== ENCOUNTER 2020-06-10 16:01 | Outpatient (CLI) | payer BC ==
[2020-06-10 18:18] LABS: #Eosinphils 0.1 10x3/uL (0.0-0.5); #Monocytes 0.4 10x3/uL (0.0-1.1); #Neutrophils 3.8 10x3/uL (1.5-8.4); %Basophils 0.5 % (0.0-2.0); %Eosinophils 0.8 % (0.0-6.0); %Lymphocytes 28.2 % (18.0-47.0); %Monocytes 6.9 % (0.0-10.0); %Neutrophils 63.3 % (40.0-75.0); Hemoglobin 13.3 g/dL (12.0-15.5); Mean Corpuscular HGB CONC 32.6 g/dL (32.0-36.0); Mean Corpuscular Hemoglobin 29.6 pg (27.0-33.0); Mean Corpuscular Volume 90.9 fl (81.6-98.3); Mean Platelet Volume 10.5 fl (7.4-10.4); Platelet Count 250 10x3/uL (150-450); RBC Distribution Width 13.4 % (11.5-14.5); Red Blood Cell (RBC) Count 4.49 10x6/uL (3.90-5.03)
[2020-06-10 18:44] LABS: Anion Gap 15 mmol/L (10-20); BUN (Urea Nitrogen) 16 mg/dL (7.0-18.7); Calc. Creatinine Clearance 0 mL/min (70-130); Calcium 9.4 mg/dL (7.8-10.44); Carbon Dioxide 28 mmol/L (22-29); Potassium 3.9 mmol/L (3.5-5.1)
[2020-06-10 19:26] LABS: Chloride 104 mmol/L (98-107); Glucose 85 mg/dL (70-105); Sodium 141 mmol/L (136-145)
[2020-06-11 06:46] LABS: SARS-CoV-2 PCR by NAA Not Detected (NotDetected)
== END 2020-06-10 16:02 | disposition home or self-care (01) ==
LOC: LABBT 16:01
PROVIDERS: ATTEND Surgery
DX: Z01.812 Encounter for preprocedural laboratory examination (principal); K43.2 Incisional hernia without obstruction or gangrene; Z20.822 Contact with and (suspected) exposure to COVID-19
CPT/HCPCS: 80048; 85025; 87635; U0003; U0005

== ENCOUNTER 2020-06-13 05:54 | Day surgery (SDC) | payer BC ==
[2020-06-11 12:26] VITALS: BMI 42.5
[2020-06-13] MEDS ORDERED: Ketorolac Tromethamine 30 MG/ML VIAL ONE (06:02)
[2020-06-13] MEDS ORDERED: Acetaminophen 500 MG TAB ONE (06:02)
[2020-06-13] MEDS ORDERED: Bupivacaine 0.25% HCL 30 ML VIAL ONE (06:36)
[2020-06-13] MEDS ORDERED: Lidocaine 1% w/Epinephrine 1:100K 20 ML VIAL ONE (06:36)
[2020-06-13] MEDS ORDERED: Fentanyl 100 MCG/2 ML VIAL ONE ×2 (07:20→11:09)
[2020-06-13] MEDS ORDERED: HYDROmorphone 0.5 MG/0.5 ML SYRINGE ONE (07:21)
[2020-06-13] MEDS ORDERED: Rocuronium Bromide 10 MG/ML (10ML VIAL) ONE (09:19)
[2020-06-13] MEDS ORDERED: Ondansetron PF 4 MG/2 ML Vial ONE (09:19)
[2020-06-13] MEDS ORDERED: Dexamethasone 20 MG/5 ML VIAL ONE (09:19)
[2020-06-13] MEDS ORDERED: Glycopyrrolate 0.2 MG/ML 5 ML SYRINGE ONE ×2 (09:19)
[2020-06-13] MEDS ORDERED: PROPOFOL 200 MG/20 ML VIAL ONE (09:19)
[2020-06-13] MEDS ORDERED: HYDROcodone/Acetaminophen 5/325 mg Tablet ONE (12:03)
== END 2020-06-13 13:25 | disposition home or self-care (01) ==
LOC: SDC 05:54
PROVIDERS: ATTEND Surgery
PROC: 0WUF4JZ Supplement Abdominal Wall with Synthetic Substitute, Percutaneous Endoscopic Approach (ICD-10-PCS; principal; 2020-06-13)
DX: K43.2 Incisional hernia without obstruction or gangrene (principal)
CPT/HCPCS: C1781; J0690; J1100; J1170; J1885; J2405; J2704; J3010; S0020

== ENCOUNTER 2020-06-27 10:10 | Outpatient (CLI) | payer BC | END 2020-06-27 10:11 | disposition home or self-care (01) | LOC: BICMAMMO 10:10 | PROVIDERS: ATTEND Obstetrics & Gynecology | DX: N63.10 Unspecified lump in the right breast, unspecified quadrant (principal); Z80.3 Family history of malignant neoplasm of breast | CPT/HCPCS: G0279 ==

== ENCOUNTER 2021-02-18 15:49 | Outpatient (CLI) | payer BC | END 2021-02-18 15:50 | disposition home or self-care (01) | LOC: BICRAD 15:49 | PROVIDERS: ATTEND Family Medicine | DX: M25.561 Pain in right knee (principal); M17.11 Unilateral primary osteoarthritis, right knee ==

== ENCOUNTER 2023-04-08 15:41 | Outpatient (CLI) | payer BC ==
[2023-04-08 17:00] LABS: #Eosinphils 0.1 10x3/uL (0.0-0.5); #Monocytes 0.3 10x3/uL (0.0-1.1); #Neutrophils 3.7 10x3/uL (1.5-8.4); %Basophils 0.6 % (0.0-2.0); %Eosinophils 0.9 % (0.0-6.0); %Lymphocytes 24.8 % (18.0-47.0); %Monocytes 5.7 % (0.0-10.0); %Neutrophils 67.8 % (40.0-75.0); Hematocrit 38.7 % (34.9-44.5); Hemoglobin 12.9 g/dL (12.0-15.5); Mean Corpuscular HGB CONC 33.3 g/dL (32.0-36.0); Mean Corpuscular Hemoglobin 29.9 pg (27.0-33.0); Mean Corpuscular Volume 89.6 fl (81.6-98.3); Mean Platelet Volume 10.3 fl (7.4-10.4); Platelet Count 241 10x3/uL (150-450); RBC Distribution Width 13.3 % (11.5-14.5); Red Blood Cell (RBC) Count 4.32 10x6/uL (3.90-5.03); White Blood Cell (WBC) Count 5.4 10x3/uL (3.5-10.5)
[2023-04-08 17:26] LABS: INR-International Normal Ratio 0.9; Prothrombin Time 9.7 sec (9.5-12.1)
[2023-04-08 17:29] LABS: Anion Gap 15 mmol/L (10-20); BUN (Urea Nitrogen) 13 mg/dL (7.0-18.7); Calc. Creatinine Clearance 0 mL/min (70-130); Calcium 9.3 mg/dL (7.8-10.44); Carbon Dioxide 25 mmol/L (22-29); Chloride 105 mmol/L (98-107); Estimated GFR 101; Glucose 89 mg/dL (70-105); Potassium 3.6 mmol/L (3.5-5.1); Sodium 141 mmol/L (136-145)
== END 2023-04-08 15:42 | disposition home or self-care (01) ==
LOC: LABBT 15:41
PROVIDERS: ATTEND Orthopaedic Surgery
DX: Z01.812 Encounter for preprocedural laboratory examination (principal); M17.11 Unilateral primary osteoarthritis, right knee
CPT/HCPCS: 80048; 85025; 85610; 87081